=== PATIENT | male | born 1980 | race African-American/Black ===

== ENCOUNTER → 2016-11-14 10:18 | Outpatient (CLI) | payer MEDICARE ==
[2015-09-03 09:41] VITALS: BMI 41.5
[~2016-11-14 10:18] MED LIST: BUMEX2 MG PO; CATAPRES0.1 MG PO; HYDRALAZINE HC100 MG PO; KEFLEX250 MG PO; LASIX80 MG PO; NIFEDIPINE ER90 MG PO; NORCO 7.5/325 T1 TA1 PO; NORMODYNE / TR200 MG PO; PROTONIX40 MG PO; TUMS500 MG PO; VITAMIN D31000 UNI2 PO
== END | disposition home or self-care (01) ==
LOC: D.ECHO 10:18
DX: R01.2 Other cardiac sounds (principal); A49.02 Methicillin resistant Staphylococcus aureus infection, unspecified site; R50.9 Fever, unspecified

== ENCOUNTER 2016-11-18 00:38 | Inpatient (IN) | payer MEDICARE ==
[2016-11-18] VITALS (7 sets, daily range): BP systolic 135–170; BP diastolic 73–92; Ht 172.7 cm; Wt 100.8 kg
[~2016-11-18] VITALS: Ht 172.7 cm; Wt 100.8 kg
--- NOTE | ~2016-11-18 | DS ---
PATIENT:LIDA GOLD :84 MEDICAL RECORD: [id number] DISCHARGE SUMMARY ADMISSION DATE: 11/18/16 DISCHARGE DATE: HISTORY OF PRESENT ILLNESS: Mr. Gold is a 36-year-old black male with chronic kidney disease, intermittent end-stage renal disease, poor compliance, who has developed outpatient fever with positive blood cultures with Staph and was admitted due to the development of pericarditis. HOSPITAL COURSE: The patient was begun on vancomycin and continued on vancomycin throughout his hospitalization. He had negative cultures, both blood and all fluid cultures, throughout his hospitalization. He was seen by cardiology where an echo and JOHANNA were negative for evidence of endocarditis. Outpatient cultures were positive for MRSA. He had a persistent pericardial friction rub with a large pericardial effusion, seen by Dr. Streeter and taken to surgery where he had pericardial window done. Cultures of pericardial fluid and his associated pleural fluid all were negative. His cytologies also were negative. He was restarted on dialysis since the pericardial effusion, was felt to be uremic in etiology and will remain on dialysis indefinitely. During this time, his blood pressure was controlled with reinstitution of his chronic medications of which he has had poor compliance. At the time of discharge, he had recovered well from his surgery. His pericardial rub had resolved. His cultures were negative. Vancomycin levels were stable, seen by Dr. Stauffer, who recommended that he finish his vancomycin out through December 15, which will give him a full 6-week course. He will resume outpatient dialysis and continue that and we will see him weekly. DISCHARGE DIAGNOSES: 1. Staphylococcal sepsis. 2. Purulent pericarditis, cultures now negative. 3. Uremia, restarting dialysis. 4. Hypertension. 5. Chronic anemia. 6. Poor compliance. PLAN: The patient will be discharged today after dialysis and restart his dialysis in [place] 3 times weekly. We will see him weekly on dialysis. He will continue his renal diet and his discharge meds will be Protonix 40 mg daily, labetalol 300 b.i.d., Nephro-Rand 1 daily, nifedipine 60 b.i.d., Renvela 800 mg t.i.d. We will finish out his dosing of vancomycin through December 15 with associated trough vancomycin levels. TRANSINT:[id number] Voice Confirmation ID: [id number] DOCUMENT ID: [id number] CC: [facility]. PELON CASTRO MD CC: [id number] DICTATION DATE: 12/06/16749 DEICER INSPECTOR PNEUMATIC: 12/06/16 08 ADM IN [place] [id number] [place] [id number]
--- NOTE | ~2016-11-18 | HEMODYNAMI ---
PATIENT:LIDA RICKS MEDICAL RECORD: [id number] : 84 LOCATION:[address] ADMISSION DATE: 11/18/16 Generatedon:11/23/201615:29 Patient name: LIDA RICKS Patient #: [id number] SSN: : 1980 Date of study: 11/23/2016 Page: Of Hemodynamic Procedure Report Patient Data Patient Demographics Procedure consent was obtained First Name: LIDA Gender: Male Last Name: MILLICENT : 1980 Patient #: [id number] Age: 36 year(s) Race: Black Additional ID: [id number] Contact details [address]: [address] [place] [address] State: [place] City: [place] Zip code: [address] Past Medical History Allergies: No known allergies Admission Admission Data Admission Date: 11/18/2016 Admission Time: 0:38 Room #: 2106 Procedure Procedure Types Cath Procedure Diagnostic Procedure JOHANNA Procedure Description Procedure Date Procedure Date: 11/23/2016 Procedure Start Time: 15:14 Procedure Staff Name Function Rufus Canela MD Performing Physician Lin Brunner RT Monitor Joel Vazquez RN Nurse Roxane Hastings RT Acute Care Nurse Hemodynamics Rest Pre Cath Intra NCS Post Cath Vital Signs Time Heart Resp SPO2 NIBP (mmHg) Rhythm Pain Sedation Rate (ipm) (%) Status Level (bpm) 15:10:37 100 99 150/88(108) NSR 0 (11) 10(A) , No pain 15:14:59 99 23 100 148/83(113) NSR 0 (11) 10(A) , No pain 15:19:11 100 19 97 142/85(108) NSR 0 (11) 10(A) , No pain 15:23:29 96 34 99 137/85(107) NSR 0 (11) 10(A) , No pain 15:28:28 98 11 Measuring NSR 0 (11) 10(A) , No pain Procedure Log Time Note 15:00:25 Joel Vazquez RN sent for patient. Start room use. 15:00:26 Time tracking: Regular hours 15:00:29 Plan of Care:Hemodynamics will remain stable., Cardiac rhythm will remain stable., Comfort level will be maintained., Respiratory function will remain adequate., Patient/ family verbilizes understanding of procedure., Procedure tolerated without complication., Recovers from procedure without complications.. 15:00:40 [facility] Floorperson present for JOHANNA. 15:07:04 Patient received from Pre/Post Procedure Room to CCL 2 Alert and oriented. Tansferred to table in Supine position. 15:07:05 Warm blankets applied, and yohana hugger turned on for patient comfort. 15:07:06 Correct patient and procedure confirmed by team. 15:07:07 Signed procedure consent form obtained from patient. 15:07:08 ECG and BP/O2 sat monitors applied to patient. 15:07:09 Full Disclosure recording started 15:07:31 H&P Date Dictated: 11/21/2016 Within 30 days and on chart.. 15:07:32 Pre-procedure instructions explained to patient. 15:07:33 Pre-op teaching completed and patient verbalized understanding. 15:07:34 Family in patients room. 15:07:55 Patient NPO since Midnight. 15:08:03 Patient allergic to No known allergies 15:08:06 Is the patient allergic to Iodine/contrast media? No. 15:08:08 Is patient on blood thinner?No 15:08:10 Patient diabetic? No. 15:08:15 ----Pre-sedation anethsthesia assessment.---- 15:08:29 See anesthesia notes for assessment. 15:08:36 Patient pain scale 0/10 ?. 15:08:59 IV patent on arrival in right antecubital with 0.9% NaCl at KVO. 15:09:06 Lab results completed and on chart. 15:09:09 Alarms reviewed by Trinity Gipson 15:09:24 Vital chart was started 15:09:28 Rhythm: sinus rhythm 15:11:23 Dr Almaraz present and monitoring patient for TIVA. 15:14:58 Procedure started. 15:16:13 JOHANNA started. 15:22:06 JOHANNA completed. 15:22:12 Procedure ended.(Physican Out) 15:25:48 End room use (Document Last) 15:29:07 Vital chart was stopped Signature Audit [place] Stage Time Signature Unsigned Intra-Procedure 11/23/2016 Roxane Hastings 3:29:05 PM RT(R) Signatures Monitor : Lin Signature : Counts RT Date : Time : [address] [address]
--- NOTE | 2016-11-18 00:48 | NUR ---
REC FROM [facility], STOUT VIA AMBULANCE/STRETCHER. ALERT/ORIENTED X 4. ON 02 AT 2L. RR 28. DEEP AND RAPID. IV IN RT AC SL. EMT STATED LEVAQUIN FINISHED EN ROUTE THAT WAS STARTED AT [facility]. DENIES PAIN. REQUESTED A SANDWICH/SODA. ORIENTED TO ROOM AND CALL LIGHT. FAMILY PRESENT IN ROOM. ORDERS FAXED FROM [facility]SE [facility] NOTED.
[2016-11-18] MEDS ORDERED: NIFEDIPINE ER30 MG PO (02:56)
--- NOTE | 2016-11-18 04:00 | NUR ---
REQUESTED ANOTHER PILLOW. FLUSHED RT AC AND SL. DENIES PAIN OR ANY OTHER NEEDS.
[2016-11-18 06:03] LABS: BASOPHILS 0.1 % (0-2); EOSINOPHILS 0 % (0-7); HEMATOCRIT 23.3 % (42.0-54.0); HEMOGLOBIN 7.7 g/dL (13.5-17.5); IMMATURE GRANULOCYTES 0.4 % (0-5); LYMPHOCYTES 8.2 % (15-50); MCH 30.4 pg (26.0-34.0); MCV 92.1 fL (80.0-100.0); MEAN PLATELET VOLUME 9.5 fL (7.4-10.4); MONOCYTES 14.5 % (2-11); NEUTROPHILS 76.8 % (40-80); PLATELET COUNT 312 10x3/uL (130-400); RBC 2.53 10x6/uL (4.20-6.10); RDW 13.6 % (11.5-14.5); WBC 13.5 10x3/uL (4.8-10.8)
--- NOTE | 2016-11-18 06:20 | NUR ---
ADMIN TYLENOL 650MG PO FOR ELEVATED TEMP 100.1 DEGREES F.
[2016-11-18 06:22] LABS: CALCIUM 8.9 mg/dL (8.5-10.1); CARBON DIOXIDE 26.6 mmol/L (21.0-32.0); CREATININE - SERUM 5.7 mg/dL (0.6-1.3); PHOSPHOROUS 3.5 mg/dL (2.5-4.9); POTASSIUM - SERUM 3.6 mmol/L (3.5-5.1)
--- NOTE | 2016-11-18 07:40 | NUR ---
PT IN BED WITH FAMILY MEMBER (ALSO IN BED) AND ANOTHER FAMILY MEMBER SITTING AT DENIES NEEDS AT THIS TIME WILL CONTINUE TO MONITOR
--- NOTE | 2016-11-18 10:50 | NUR ---
PT SITTING UP IN BED DENIES NEEDS
--- NOTE | 2016-11-18 19:15 | NUR ---
RECEIVED REPORT, WILL ASSUME CARE OF PT, PT SITTING UP IN CHAIR, VISITING WITH FAMILY, DENIES ANY NEEDS AT THIS TIME, WILL CONTINUE PLAN OF CARE
--- NOTE | 2016-11-18 21:35 | NUR ---
FEVER-102.8, GAVE 2 TYLENOL PER ORDER
--- NOTE | 2016-11-18 23:53 | NUR ---
ASSESSMENT COMPLETE, SEE FLOWSHEET, PT SLEEPING, BED IS LOW, SRX2, CALL LIGHT IN REACH, WILL CONTINUE TO MONITOR
[2016-11-19] VITALS: BP 123/64
[2016-11-19 04:00] VITALS: BP 141/76
[2016-11-19 06:09] LABS: BASOPHILS 0.1 % (0-2); EOSINOPHILS 0.4 % (0-7); HEMATOCRIT 22.3 % (42.0-54.0); IMMATURE GRANULOCYTES 0.4 % (0-5); LYMPHOCYTES 12.1 % (15-50); MCH 29.4 pg (26.0-34.0); MCHC 32.3 g/dL (31.0-37.0); MEAN PLATELET VOLUME 9.3 fL (7.4-10.4); MONOCYTES 13.1 % (2-11); NEUTROPHILS 73.9 % (40-80); PLATELET COUNT 286 10x3/uL (130-400); RBC 2.45 10x6/uL (4.20-6.10); RDW 13.7 % (11.5-14.5); WBC 11.7 10x3/uL (4.8-10.8)
[2016-11-19 06:22] LABS: HEMOGLOBIN 7.2 g/dL (13.5-17.5)
[2016-11-19 06:48] LABS: ANION GAP 12.6 mmol/L (8-16); CALCIUM 9.1 mg/dL (8.5-10.1); CARBON DIOXIDE 27.9 mmol/L (21.0-32.0); CREATININE - SERUM 7.6 mg/dL (0.6-1.3); POTASSIUM - SERUM 3.5 mmol/L (3.5-5.1); VANCOMYCIN - RANDOM 8.8 ug/mL (10.0-20.0)
[2016-11-19 08:10] VITALS: BP 138/80
--- NOTE | 2016-11-19 09:32 | NUR ---
PT SITTING IN CHAIR CONVERSING WITH VISITORS PROVIDED LEMON-BIG [employer]INE RESERVATION SODA PER REQUEST DENIES NO FURTHER NEEDS AT THIS TIME WILL CONTINUE TO MONITOR
[2016-11-19 11:27] VITALS: BP 146/73
--- NOTE | 2016-11-19 13:41 | NUR ---
RESTS IN BED WITH CALL LIGHT IN REACH. IV PATENT. DR. MONTGOMERY AT BS. WILL CONT. PLAN OF CARE.
[2016-11-19 15:16] VITALS: BP 144/87
--- NOTE | 2016-11-19 17:37 | NUR ---
PATIENT LEFT UNIT FOR DIALYSIS AT 1515. NO DISTRESS UPON LEAVING UNIT.
--- NOTE | 2016-11-19 19:25 | NUR ---
NOT IN ROOM. STILL IN DIALYSIS.
[2016-11-19 20:00] VITALS: BP 152/89
--- NOTE | 2016-11-19 22:02 | NUR ---
BACK FROM DIALYSIS. ADMIN SCHED MEDS AND TYLELENOL 650 MG FOR ELEVATED TEMP OF 101.4 F. REQUESTED DOOR CLOSED AND LIGHTS OFF. NO OTHER NEEDS VOICED.
[2016-11-20] VITALS: BP 138/78
--- NOTE | 2016-11-20 03:42 | NUR ---
IV WOULD NOT FLUSH. REMOVED, AND RESITED IN RIGHT HAND 22G. REQUESTED SOME APPLEJUICE.
[2016-11-20 04:00] VITALS: BP 142/78
[2016-11-20 06:42] LABS: BASOPHILS 0.2 % (0-2); EOSINOPHILS 0.7 % (0-7); HEMATOCRIT 25.2 % (42.0-54.0); HEMOGLOBIN 8.3 g/dL (13.5-17.5); IMMATURE GRANULOCYTES 0.5 % (0-5); LYMPHOCYTES 11.7 % (15-50); MCH 29.3 pg (26.0-34.0); MCHC 32.9 g/dL (31.0-37.0); MEAN PLATELET VOLUME 9.4 fL (7.4-10.4); MONOCYTES 11.8 % (2-11); NEUTROPHILS 75.1 % (40-80); PLATELET COUNT 275 10x3/uL (130-400); RBC 2.83 10x6/uL (4.20-6.10); RDW 14.7 % (11.5-14.5)
[2016-11-20 06:58] LABS: CARBON DIOXIDE 30.4 mmol/L (21.0-32.0); CREATININE - SERUM 5.8 mg/dL (0.6-1.3); POTASSIUM - SERUM 3.4 mmol/L (3.5-5.1); VANCOMYCIN - RANDOM 14.2 ug/mL (10.0-20.0)
--- NOTE | 2016-11-20 07:23 | NUR ---
PT SITTING UP IN CHAIR WITH ATTENTION TOWARDS TELEVISION DENIES NEEDS AT THIS TIME WILL CONTINUE TO MONITOR
[2016-11-20 07:47] VITALS: BP 143/77
--- NOTE | 2016-11-20 09:53 | NUR ---
RESTS IN BED WITH CALL LIGHT IN REACH. IV PATENT. NO NEEDS VOICED. WILL CONT. PLAN OF CARE.
[2016-11-20 11:41] VITALS: BP 131/77
[2016-11-20 16:12] VITALS: BP 142/82
[2016-11-20 19:00] VITALS: BP 119/76
--- NOTE | 2016-11-20 19:15 | NUR ---
RECEIVED REPORT, WILL ASSUME CARE OF PT, RECEIVING BREATHING TREATMENT AT THIS TIME, DENIES ANY NEEDS, BED IS LOW, SRX2, CALL LIGHT IN REACH, WILL CONTINUE PLAN OF CARE
--- NOTE | 2016-11-20 23:51 | NUR ---
[id number] LAWRENCE IV IN RFA, I-ATTEMPT
--- NOTE | 2016-11-21 01:05 | NUR ---
CALL LIGHT IN REACH, WILL CONTINUE WITH PLAN OF CARE.
[2016-11-21 04:00] VITALS: BP 151/84
--- NOTE | 2016-11-21 04:09 | NUR ---
ASSESSMENT COMPLETE, SEE FLOWSHEET, PT SLEEPING, BED IS LOW, SRX2, CALL LIGHT IN REACH , WILL CONTINUE TO MONITOR
[2016-11-21 05:35] LABS: BASOPHILS 0.2 % (0-2); EOSINOPHILS 0.6 % (0-7); HEMATOCRIT 25.6 % (42.0-54.0); HEMOGLOBIN 8.4 g/dL (13.5-17.5); IMMATURE GRANULOCYTES 0.4 % (0-5); LYMPHOCYTES 10.3 % (15-50); MCH 29.3 pg (26.0-34.0); MCHC 32.8 g/dL (31.0-37.0); MCV 89.2 fL (80.0-100.0); MEAN PLATELET VOLUME 9.6 fL (7.4-10.4); MONOCYTES 11.4 % (2-11); NEUTROPHILS 77.1 % (40-80); PLATELET COUNT 290 10x3/uL (130-400); RBC 2.87 10x6/uL (4.20-6.10); RDW 14.6 % (11.5-14.5); WBC 12.9 10x3/uL (4.8-10.8)
[2016-11-21 06:09] LABS: ANION GAP 11.9 mmol/L (8-16); CALCIUM 8.9 mg/dL (8.5-10.1); CARBON DIOXIDE 29.4 mmol/L (21.0-32.0); CREATININE - SERUM 6.9 mg/dL (0.6-1.3); POTASSIUM - SERUM 3.3 mmol/L (3.5-5.1); THYROID STIMULATING HORMONE 0.72 uIU/mL (0.36-3.74); VANCOMYCIN - RANDOM 16.6 ug/mL (10.0-20.0)
[2016-11-21 06:46] LABS: ERYTHROCYTE SEDIMENTATION RATE 112 mm/hr (0-15)
--- NOTE | 2016-11-21 07:40 | NUR ---
LYING IN BED RESTING. DENIES ANY NEEDS. ALERT AND ORIENTED X4. CALL LIGHT IN REACH. WILL CONTINUE TO MONITOR.
[2016-11-21 08:00] VITALS: BP 133/88
--- NOTE | 2016-11-21 10:32 | NUR ---
RESP UL ON . CALL LIGHT IN REACH. ROBYN NEEDS AT THIS TIME. WILL CINT. PLAN OF CARE.
--- NOTE | 2016-11-21 10:48 | NUR ---
INFORMED PT OF CHANGE IN DIALYSIS TO M,W,FRI. AND THAT HE WILL BE GOING TO CT IN THE NEXT 30 MIN PER MARGARITA IN IMAGING. PT VERBALIZED UNDERSTANDING. NO CONCERNS VOICED. CALL LIGHT IN REACH
--- NOTE | 2016-11-21 11:30 | NUR ---
TRANSFERED OFF FLOOR BY IMAGING FOR CT
[2016-11-21 12:00] VITALS: BP 144/83
--- NOTE | 2016-11-21 12:00 | NUR ---
MARGARITA FROM IMAGING CALLED AND ADVISED SHE WAS TAKING PT TO DIALYSIS
[2016-11-21 16:00] VITALS: BP 152/96
[2016-11-21 20:00] VITALS: BP 144/85
[2016-11-22] VITALS (7 sets, daily range): BP systolic 137–163; BP diastolic 76–91
--- NOTE | 2016-11-22 02:00 | NUR ---
NURSE ROUNDS 11/21/16 21:00 - PT LYING IN BED, AWAKE, ALERT, ORIENTED, JUST INFORMED BY COTTON BALL BAGGER THAT HIS TEMP WAS 102.8. BLOOD CULTURES ORDERED X [address] ANTONY'S ORDER, PRN TYLENOL GIVEN, PT IN NO ACUTE DISTRESS. PT GIVEN DIET LEMON [place] SODA, AKSHAT CRACKERS, AND APPLESAUCE TO TAKE WITH HIS VIBRAMYCIN TO OFFSET POSSIBLE NAUSEA. PT DENIES ANY OTHER NEEDS. CONTINUE TO MONITOR CLOSELY.
[2016-11-22 05:32] LABS: BASOPHILS 0.1 % (0-2); EOSINOPHILS 0.8 % (0-7); HEMATOCRIT 26.6 % (42.0-54.0); HEMOGLOBIN 8.4 g/dL (13.5-17.5); IMMATURE GRANULOCYTES 0.5 % (0-5); LYMPHOCYTES 11.2 % (15-50); MCH 28.7 pg (26.0-34.0); MCHC 31.6 g/dL (31.0-37.0); MCV 90.8 fL (80.0-100.0); MEAN PLATELET VOLUME 9.2 fL (7.4-10.4); MONOCYTES 14.1 % (2-11); NEUTROPHILS 73.3 % (40-80); PLATELET COUNT 315 10x3/uL (130-400); RBC 2.93 10x6/uL (4.20-6.10); RDW 14.2 % (11.5-14.5); WBC 12.1 10x3/uL (4.8-10.8)
[2016-11-22 05:59] LABS: ALBUMIN 2.3 g/dL (3.4-5.0); ANION GAP 11.7 mmol/L (8-16); CARBON DIOXIDE 29.9 mmol/L (21.0-32.0); CREATININE - SERUM 5.3 mg/dL (0.6-1.3); POTASSIUM - SERUM 3.6 mmol/L (3.5-5.1); PROTEIN - SERUM 7.7 g/dL (6.4-8.2); VANCOMYCIN - RANDOM 9.4 ug/mL (10.0-20.0)
--- NOTE | 2016-11-22 07:30 | NUR ---
RESTING QUIETLY RESP UNLABORED NAD NOTED
--- NOTE | 2016-11-22 07:55 | NUR ---
SITTING UP IN BED WATCHING TV. OFFERS NO COMPLAINTS. ALERT AND ORIENTED X4. CALL LIGHT IN REACH, BED LOW. WILL CONTINUE TO MONITOR.
[2016-11-22 08:19] LABS: HEPATITIS C ANTIBODY 0.2 (0.0-0.9)
--- NOTE | 2016-11-22 08:26 | NUR ---
ADMINISTERED IV VANC 250ML/HR WITH NO DIFFICULTIES WITH IV TO RIGHT AC. WILL CONTINUE TO MONITOR.
[2016-11-22 10:18] LABS: ANA REFLEX - DIRECT Negative (Negative)
--- NOTE | 2016-11-22 20:57 | NUR ---
PT LYING IN BED, AWAKE, ALERT, ORIENTED, DENIES ANY NEEDS. WILL CALL IF ANY CHANGES. CONTINUE TO MONITOR CLOSELY.
[2016-11-23] VITALS: BP 146/79
--- NOTE | 2016-11-23 00:11 | NUR ---
PT LYING IN BED, EYES CLOSED, EASILY ROUSABLE TO VERBAL STIMULI. PT DENIES ANY NEEDS, REFUSES TO EAT ANYTHING BEFORE GOING NPO AFTER MIDNIGHT. CONTINUE TO MONITOR CLOSELY.
[2016-11-23 04:00] VITALS: BP 149/89
[2016-11-23 05:36] LABS: BASOPHILS 0.1 % (0-2); EOSINOPHILS 1.3 % (0-7); HEMATOCRIT 24.7 % (42.0-54.0); HEMOGLOBIN 7.8 g/dL (13.5-17.5); IMMATURE GRANULOCYTES 0.4 % (0-5); LYMPHOCYTES 13.7 % (15-50); MCH 28.7 pg (26.0-34.0); MCHC 31.6 g/dL (31.0-37.0); MCV 90.8 fL (80.0-100.0); MONOCYTES 13.3 % (2-11); NEUTROPHILS 71.2 % (40-80); PLATELET COUNT 317 10x3/uL (130-400); RBC 2.72 10x6/uL (4.20-6.10)
[2016-11-23 05:59] LABS: CALCIUM 8.9 mg/dL (8.5-10.1); CARBON DIOXIDE 28.5 mmol/L (21.0-32.0); CREATININE - SERUM 6.3 mg/dL (0.6-1.3); PHOSPHOROUS 4.2 mg/dL (2.5-4.9); POTASSIUM - SERUM 3.5 mmol/L (3.5-5.1); VANCOMYCIN - RANDOM 14.8 ug/mL (10.0-20.0)
--- NOTE | 2016-11-23 07:18 | NUR ---
PT SITTING UP IN BED DENIES NEEDS AT THIS TIME. ASKING WHAT TIME HIS JOHANNA WILL BE. CALLED ULTRASOUND, NO ONE HERE YET. WILL KEEP TRYING.
[2016-11-23 08:24] VITALS: BP 146/66
--- NOTE | 2016-11-23 10:03 | NUR ---
PT TO RECEIVE 1 UNIT OF BLOOD ON DIALYSIS TODAY. CONSENT IS ON CHART. PT TO HAVE JOHANNA DONE ALSO TODAY. CONSENTS ARE ALSO SIGNED AND ON PT CHART. SCHEDULED FOR 1 PM
[2016-11-23 12:12] VITALS: BP 142/75
--- NOTE | 2016-11-23 14:25 | NUR ---
SPOKE WITH MANAGER REGIONAL SALES ABOUT PT JOHANNA THAT WAS SCHEDULED AT 1300 STILL HASNT BEEN DONE YET. SHE SAID THEY WERE WAITING ON SODA FOUNTAIN CLERK- SHOULD DO AT 1500
--- NOTE | 2016-11-23 15:02 | NUR ---
PT TO JOHANNA PROCEDURE
--- NOTE | 2016-11-23 15:45 | NUR ---
PT BACK FROM PROCEDURE ALERT AND ORIENTED LETHARGIC BUT ARROUSES TO VOICE. VS ARE WNL. WILL CONT TO MONITOR. CALLED DIALYSIS TO LET THEM KNOW PT WAS BACK NO ANSWER. DIALYSIS EQUIPMENT ON FLOOR AND LANCE NURSE SAID SHE WOULD BE UP SOON
[2016-11-23 16:27] VITALS: BP 130/67
--- NOTE | 2016-11-23 17:50 | NUR ---
[facility] ORDER WAS PUT IN WRONG AND BLOOD BANK DID NOT RECEIVE ORDER TO TRANSFUSE BLOOD. FIXED ORDER. CALLED BLOOD BANK AND THEY SAID THAT THEY CAN HAVE IT READY IN 1 HOUR. DIALYSIS CURRENTLY GOING. TALKED WITH LANCE AND [facility] THEY SAID IF BLOOD IS HERE WITHIN THE HOUR THEN THEY CAN GIVE IT WITH DIALYSIS.
--- NOTE | 2016-11-23 18:03 | NUR ---
PT CURRENTLY RECEIVING DIALYSIS. LANCE AT BEDSIDE. WAITING ON BLOOD TO BE READY FROM BLOOD BANK
--- NOTE | 2016-11-23 18:15 | NUR ---
DIALYSIS NURSE LANCE CAME OUT AND SAID THAT PT BP IS GETTING HIGH 170S/118. PAGED RENAL ASPARAGUS CUTTER FOR PRN MEDICATION. PT HAS NONE.
[2016-11-23 19:00] VITALS: BP 176/106
--- NOTE | 2016-11-23 19:41 | NUR ---
PT LYING IN BED, RESTING COMFORTABLY, RECEIVING DIALYSIS AT THIS TIME. REPORT FROM DAY SHIFT NURSE CORDELL WAS THAT THE BLOOD WAS NOT ORDERED CORRECTLY, THEREFORE IT WAS NOT AVAILABLE TO TRANSFUSE DURING DIALYSIS AT THIS TIME. ALSO, PT EXPERIENCED A HYPERTENSIVE EPISODE THAT REQUIRED HIS B/P MEDS TO BE GIVEN EARLIER THAN SCHEDULED. DIALYSIS NURSE JUST INFORMED THAT HE HAS 51 MINUTES LEFT ON DIALYSIS, AND THAT SHE IS UNABLE TO GIVE THE BLOOD NOW ANYWAY. WILL CONSULT WITH RENAL FOR ANY FURTHER ORDERS. CONTINUE TO MONITOR CLOSELY.
[2016-11-24] VITALS: BP 187/96
--- NOTE | 2016-11-24 05:19 | NUR ---
PT LYING IN BED, EYES CLOSED, RESPIRATIONS EVEN AND UNLABORED. PT DENIES ANY NEEDS, CONTINUE TO MONITOR CLOSELY.
[2016-11-24 05:24] LABS: BASOPHILS 0.2 % (0-2); EOSINOPHILS 0.9 % (0-7); HEMATOCRIT 24.9 % (42.0-54.0); IMMATURE GRANULOCYTES 0.4 % (0-5); LYMPHOCYTES 13.6 % (15-50); MCH 29.2 pg (26.0-34.0); MCHC 32.1 g/dL (31.0-37.0); MCV 90.9 fL (80.0-100.0); MEAN PLATELET VOLUME 9.1 fL (7.4-10.4); MONOCYTES 12.7 % (2-11); NEUTROPHILS 72.2 % (40-80); PLATELET COUNT 324 10x3/uL (130-400); RBC 2.74 10x6/uL (4.20-6.10); RDW 13.9 % (11.5-14.5); WBC 10.3 10x3/uL (4.8-10.8)
[2016-11-24 05:43] LABS: ANION GAP 11.8 mmol/L (8-16); CALCIUM 8.9 mg/dL (8.5-10.1); CARBON DIOXIDE 29.6 mmol/L (21.0-32.0); CREATININE - SERUM 4.5 mg/dL (0.6-1.3); PHOSPHOROUS 3.4 mg/dL (2.5-4.9); POTASSIUM - SERUM 3.4 mmol/L (3.5-5.1); VANCOMYCIN - RANDOM 16.5 ug/mL (10.0-20.0)
--- NOTE | 2016-11-24 07:20 | NUR ---
PT LAYING TO LEFT SIDE COMPLETING BREATHING TX DENIES ANY NEEDS WILL CONT TO MONITOR
[2016-11-24 08:20] LABS: CREATININE - URINE 225.5 mg/dL (30-125)
[2016-11-24 09:18] VITALS: BP 136/79
[2016-11-24 12:35] VITALS: BP 144/77
--- NOTE | 2016-11-24 14:06 | TEE ---
PATIENT:LIDA RICKS MEDICAL RECORD: [id number] LOCATION:D.M2 D.210 AGE OF PATIENT: 36 ADMISSION DATE: 11/18/16 SEX: M REFERRING PHYSICIAN: INTERPRETING PHYSICIAN: DEDRICK EPSTEIN MD TRANSESOPHAGEAL ECHOCARDIOGRAM JOHANNA CHARGE Y INDICATIONS: EVALUATE PERICARDIAL EFFUSION & R/O VEGETATION ON MITRAL VALVE PREMEDICATIONS: PATIENT'S RESPONSE PROCEDURE DOPPLER MEASUREMENTS: LVIT LA PA RA LVOT RVOT Asc. Ao AV Gradient Peak AV Mean AV Area MV Gradient Peak MV Mean MV Area INTERPRETATION: Doppler: 2-D: COLOR FLOW DOPPLER NORMAL SALINE STUDY: MISCELLANOUS: DIAGNOSIS: PLAN: Physician Assistant:3 Dr. Canela Resort Desk Clerk: 1 TRINA HOROWITZ COMMENTS: SMALL VEG NOTED ON MV POSTERIOR LEAFLET DATE OF SERVICE: 11/23/2016 Transesophageal Note DESCRIPTION OF PROCEDURE: After general sedation via TIVA via anesthesia, the transesophageal Omniplane probe was placed in the distal esophagus and proximal stomach without difficulty. TRANSESOPHAGEAL ECHOCARDIOGRAM REPORT [id number] LIDA RICKS FINDINGS: As follows, LVH is present. LV internal dimensions are normal. Wall motion is normal. EF is greater than 55%. The aortic valve is well visualized, it is tricuspid with no evidence of vegetation. No significant AI is noted. Left atrium appears of normal dimensions. Left atrial appendage is well visualized with no evidence of thrombus. Mitral valve is well visualized, this showed normal coaptation with no vegetation noted. Right-sided chambers appear upper limits of normal. Tricuspid valve is well visualized. There is trivial TR with no evidence of vegetation. Pulmonic valve shows no evidence of vegetation. IMPRESSION: No evidence of vegetation in all 4 cardiac valves, normal left ventricular function. TRANSINT:[id number] Voice Confirmation ID: [id number] DOCUMENT ID: [id number] at 1406 CC: [id number] DICTATION DATE: 11/23/16 1526 SUPERINTENDENT STORAGE AREA: 11/24/16 0037 ADM IN [place] [id number] [place] [address]
--- NOTE | 2016-11-24 15:16 | NUR ---
Nutrition Follow Up: Pt is eating 95% meal avg on a renal diet. Wt loss since admit noted. +BM 11/19/16. Meds and labs reviewed. Rec continue current diet. RD following.
[2016-11-24 16:27] VITALS: BP 146/69
--- NOTE | 2016-11-24 19:30 | NUR ---
RECEIVED REPORT, WILL ASSUME CARE OF PT, PT DENIES ANY NEEDS AT THIS TIME, VISITING WITH FAMILY, BED IS LOW, SRX2, CALL LIGHT IN REACH, WILL CONTINUE PLAN OF CARE
--- NOTE | 2016-11-24 19:55 | NUR ---
CREW LEADER AT BEDSIDE TO OBTAIN VITALS, CALL LIGHT IN REACH. WILL CONTINUE WITH PLAN OF CARE.
[2016-11-24 20:00] VITALS: BP 148/76
[2016-11-25] VITALS: BP 146/71
--- NOTE | 2016-11-25 01:47 | NUR ---
ASSESSMENT COMPLETE, SEE FLOWSHEET, PT SLEEPING, BED IS LOW, SRX2, CALL LIGHT IN REACH, WILL CONTINUE PLAN OF CARE
[2016-11-25 04:00] VITALS: BP 146/78
[2016-11-25 04:23] LABS: BASOPHILS 0.2 % (0-2); EOSINOPHILS 1.4 % (0-7); HEMATOCRIT 25.9 % (42.0-54.0); HEMOGLOBIN 8.4 g/dL (13.5-17.5); IMMATURE GRANULOCYTES 0.5 % (0-5); LYMPHOCYTES 15.1 % (15-50); MCH 29.2 pg (26.0-34.0); MCHC 32.4 g/dL (31.0-37.0); MCV 89.9 fL (80.0-100.0); MEAN PLATELET VOLUME 8.5 fL (7.4-10.4); NEUTROPHILS 72.8 % (40-80); PLATELET COUNT 338 10x3/uL (130-400); RBC 2.88 10x6/uL (4.20-6.10); RDW 13.7 % (11.5-14.5); WBC 10.2 10x3/uL (4.8-10.8)
[2016-11-25 04:51] LABS: ANION GAP 10.9 mmol/L (8-16); CALCIUM 9.2 mg/dL (8.5-10.1); CARBON DIOXIDE 28.6 mmol/L (21.0-32.0); CREATININE - SERUM 5.5 mg/dL (0.6-1.3); PHOSPHOROUS 3.7 mg/dL (2.5-4.9); POTASSIUM - SERUM 3.5 mmol/L (3.5-5.1); VANCOMYCIN - RANDOM 12.7 ug/mL (10.0-20.0)
--- NOTE | 2016-11-25 07:25 | NUR ---
PT SITTING UP IN BED WATCHING TV MOTHER IS AT BEDSIDE DENIES ANY NEEDS WILL CONT TO MONITOR
[2016-11-25 07:31] VITALS: BP 147/82
--- NOTE | 2016-11-25 08:40 | NUR ---
PT PIV INFILTRATED IN R AC DC WITH CATH TIP INTACT. RESITED TO R FA 22G X2 STICKS. NOW RUNNING WITHOUT ANY ISSUES. PT DENIES ANY OTHER NEEDS WILL CONT TO MONITOR
[2016-11-25 12:39] VITALS: BP 152/87
--- NOTE | 2016-11-25 14:04 | NUR ---
LANCE FROM DIALYSIS CALLED AND SAID THAT PT HAS BEEN CHANGED TO [facility]. THE ORDER STILL STATES THAT MWF DIALYSIS. ASKED HER WHO SAID THE ORDERS WERE CHANGED BECAUSE IT STILL STATES THAT PT IS TO HAVE MWF DIALYSIS. SHE SAID SHE WASNT SURE, THAT [facility] HAD SAID THEY CHANGED. SHE IS GOING TO ASK [facility] AND GET BACK TO ME
--- NOTE | 2016-11-25 14:36 | NUR ---
SPOKE WITH JOYCE RENAL PIANO AND ORGAN REFINISHER ABOUT PT DIALYSIS DAYS. SHE SAID THAT YES THEY ARE CHANGING HIM TO [facility] AND THE ORDER WILL BE FIXED
--- NOTE | 2016-11-25 14:49 | NUR ---
PT SITTING UP IN BED DENIES ANY NEEDS WILL CONT TO MONITOR. MOTHER AT BEDSIDE
[2016-11-25 15:46] VITALS: BP 141/81
[2016-11-25 15:47] LABS: APTT 33.3 SECONDS (22.8-39.4); INR 1.36 (0.85-1.17); PROTIME 16.7 SECONDS (11.6-15.0)
--- NOTE | 2016-11-25 18:02 | NUR ---
PT SITTING UP IN BED WATCHING TV DENIES NEEDS
--- NOTE | 2016-11-25 21:40 | NUR ---
AWAKE WATCHING TV. ADMIN SCHED MEDS. DENIES ANY NEEDS OR DISCOMFORTS.
[2016-11-25 23:43] LABS: APPEARANCE CLEAR (CLEAR); BACTERIA NONE SEEN /hpf (NONE SEEN); BILIRUBIN NEGATIVE (NEGATIVE); COLOR YELLOW (YELLOW); EPITHELIAL CELLS RARE /hpf (0-5); GLUCOSE NEGATIVE (NEGATIVE); KETONE NEGATIVE (NEGATIVE); LEUKOCYTE ESTERASE NEGATIVE (NEGATIVE); NITRITE NEGATIVE (NEGATIVE); PROTEIN 2+ mg/dL (NEGATIVE); RED CELLS - URINE 0-5 /hpf (0-5); UROBILINOGEN NORMAL (NORMAL); WHITE CELLS - URINE 0-5 /hpf (0-5)
--- NOTE | 2016-11-26 03:30 | NUR ---
MOTOCROSS RACER PRESENT IN ROOM TAKING VS. DENIES ANY NEEDS.
[2016-11-26 04:00] VITALS: BP 161/80
[2016-11-26 05:46] LABS: BASOPHILS 0.2 % (0-2); EOSINOPHILS 1.4 % (0-7); HEMATOCRIT 25.4 % (42.0-54.0); HEMOGLOBIN 8.2 g/dL (13.5-17.5); IMMATURE GRANULOCYTES 0.4 % (0-5); LYMPHOCYTES 11.4 % (15-50); MCHC 32.3 g/dL (31.0-37.0); MCV 89.8 fL (80.0-100.0); MEAN PLATELET VOLUME 8.9 fL (7.4-10.4); MONOCYTES 12.6 % (2-11); PLATELET COUNT 365 10x3/uL (130-400); RBC 2.83 10x6/uL (4.20-6.10); RDW 13.7 % (11.5-14.5); WBC 11.1 10x3/uL (4.8-10.8)
[2016-11-26 06:04] LABS: ANION GAP 14.7 mmol/L (8-16); CALCIUM 9.1 mg/dL (8.5-10.1); CARBON DIOXIDE 25.1 mmol/L (21.0-32.0); CREATININE - SERUM 5.8 mg/dL (0.6-1.3); PHOSPHOROUS 3.8 mg/dL (2.5-4.9); POTASSIUM - SERUM 3.8 mmol/L (3.5-5.1); VANCOMYCIN - RANDOM 16.1 ug/mL (10.0-20.0)
--- NOTE | 2016-11-26 07:47 | NUR ---
AM ROUNDS - PT IS IN BED AND APPEARS TO BE SLEEPING WITH EQUAL AND NON LABORED BREATHING. NON SKID SOCKS ON. IV TO RIGHT FA, SL. PT IS ON ROOM AIR. CONTACT ISOLATION. MONITOR SHOWING ST, HR 102. BED AT LOWEST POSITION. SIDE RAILS UP X2. CALL RICKS IN USE/REACH. WILL CONTINUE TO MONITOR
[2016-11-26 08:00] VITALS: BP 172/83
--- NOTE | 2016-11-26 09:51 | NUR ---
MORNING MEDICATION GIVEN. NO NEEDS AT THIS TIME. WILL CONTINUE TO MONITOR
[2016-11-26 12:00] VITALS: BP 134/90
--- NOTE | 2016-11-26 12:31 | EC ---
PATIENT:LIDA RICKS DATE OF SERVICE: 11/18/16 SEX: M MEDICAL RECORD: [id number] DATE OF : [birth year] LOCATION:D.M2 D.210 AGE OF PATIENT: 36 ADMISSION DATE: 11/18/16 REFERRING PHYSICIAN: INTERPRETING PHYSICIAN: CONCHITA HERRON MD ECHOCARDIOGRAM REPORT ECHO CHARGES 5 ECHO LIMITED CLINICAL DIAGNOSIS: ASSESS FOR PERICARDIAL EFFUSION AND ENDOCARDITIS ECHOCARDIOGRAPHIC MEASUREMENTS (adult normal given) AC root (d.<3.7cm) cm LV Septum d (<1.2 cm> cm Valve Excursion cm LV Septum (systole) cm Left Atria (s.<4.0cm> cm LVPW d(<1.2cm) cm RV (d.<2.3cm) cm LVPW (sytole) cm LV diastole(<5.6CM) cm MV E-F(>70mm/sec) cm LV systole cm LVOT Diameter cm MV exc.(>10mm) cm Est.ejection fraction (50-75%) % Pericardial Effusion Y DOPPLER: LVIT cm/sec A cm/sec E cm/sec LA cm/sec RVSP mmHg LVOT cm/sec AOP1/2T m/s Asc. Ao cm/sec RVOT cm/sec RA cm/sec PA cm/sec AV Gradient Peak mmHg AV Mean mmHg AV Area cm MV Gradient Peak mmHg MV Mean mmHg MV Area cm COMMENTS: SMALL VEG NOTED ON MV POSTERIOR LEAFLET Digital Editor: Sidra MORGAN Yam Curer: Sha Herron TAPE# PACS DATE OF SERVICE: 11/19/2016 Echocardiogram FINDINGS: 1. Left ventricle chamber size is within normal limits. Left ventricular systolic function is normal. Overall ejection fraction 50%. 2. Pericardial effusion is present. This is small to moderate, not hemodynamically significant. 3. There is an echogenic structure on the posterior leaflet of mitral valve ECHOCARDIOGRAM REPORT [id number] [place]IDA RICKS this very well compatible with endocarditis. TRANSINT:[id number] Voice Confirmation ID: [id number] DOCUMENT ID: [id number] 11/25/2016 Edited to correct date of service, dmm. CONCHITA HERRON MD at 1231 CC: [id number] DICTATION DATE: 11/21/16 1023 HAND VIOLIN MAKER: 11/21/[address] [facility] [address] [place] [address]
--- NOTE | 2016-11-26 12:31 | EC ---
PATIENT:LIDA RICKS DATE OF SERVICE: 11/18/16 SEX: M MEDICAL RECORD: [id number] DATE OF : [birth year] LOCATION:D.M2 D.210 AGE OF PATIENT: 36 ADMISSION DATE: 11/18/16 REFERRING PHYSICIAN: INTERPRETING PHYSICIAN: CONCHITA BUTTERFIELD MD ECHOCARDIOGRAM REPORT ECHO CHARGES 5 ECHO LIMITED CLINICAL DIAGNOSIS: PERICARDIAL EFFUSION ECHOCARDIOGRAPHIC MEASUREMENTS (adult normal given) AC root (d.<3.7cm) 0 cm LV Septum d (<1.2 cm> 0 cm Valve Excursion 0 cm LV Septum (systole) 0 cm Left Atria (s.<4.0cm> 0 cm LVPW d(<1.2cm) 0 cm RV (d.<2.3cm) 0 cm LVPW (sytole) 0 cm LV diastole(<5.6CM) 0 cm MV E-F(>70mm/sec) 0 cm LV systole 0 cm LVOT Diameter 0 cm MV exc.(>10mm) 0 cm Est.ejection fraction (50-75%) 0 % Pericardial Effusion Y DOPPLER: LVIT 0 cm/sec A 0 cm/sec E 0 cm/sec LA 0 cm/sec RVSP 0 mmHg LVOT 0 cm/sec AOP1/2T 0 m/s Asc. Ao 0 cm/sec RVOT 0 cm/sec RA 0 cm/sec PA 0 cm/sec AV Gradient Peak 0 mmHg AV Mean 0 mmHg AV Area 0 cm MV Gradient Peak 0 mmHg MV Mean 0 mmHg MV Area 0 cm COMMENTS: LIMITED STUDY (2-D ONLY) Patternmaker All Around: Sha HOROWITZ Industrial Fabric Cutter: 2 Dr. Hunt TAPE# PACS DATE OF SERVICE: 11/25/2016 Limited Echocardiogram Evaluation and Pericardial Effusion Pericardial effusion is still present; however, it is smaller than it was previously. It is now mild at 1 cm-4 cm. No evidence of tamponade. OVERALL IMPRESSION: Decreasing size of the previously noted pericardial effusion with no evidence of hemodynamic compromise. ECHOCARDIOGRAM REPORT [id number] LIDA RICKS TRANSINT:[id number] Voice Confirmation ID: [id number] DOCUMENT ID: [id number] CONCHITA BUTTERFIELD MD at 1231 CC: LORENA VEGA MD [id number] DICTATION DATE: 11/25/16 1201 WASTE HAND: 11/25/162103 ADM IN [facility] [address] [place] [address]
--- NOTE | 2016-11-26 13:02 | NUR ---
EPOGEN WAS DUE AT 0900. NOT IN THE FRIDGE. CALLED PHARMACY. 1020 - PHARMACY BROUGHT EPOGEN UP. PT REVIEVING DIALYSIS. DIALYSIS SUGESTED THAT I WAIT UNTIL AFTER DIALYSIS. WILL CONTINUE TO MONITOR
--- NOTE | 2016-11-26 13:31 | NUR ---
ORDER FOR 2 UNITS [facility] ON DIALYSIS DAY WRITTEN ON 11/25/16. PT DID NOT RECIEVE DIALYSIS ON 11/25/16. PT RECIEVED DIALYSIS TODAY, 11/26/16, PT RECIEVED 2 UNITS [facility] WITH DIALYSIS. WILL CONTINUE TO MONITOR
[2016-11-26 16:00] VITALS: BP 133/76
--- NOTE | 2016-11-26 19:26 | NUR ---
PT ASLEEP. RESPIRATIONS EVEN AND UNLABORED. NO S/S OF DISTRESS. WILL CONTINUE TO MONITOR
[2016-11-26 20:00] VITALS: BP 155/87
--- NOTE | 2016-11-26 22:36 | NUR ---
PT SITTING IN BED WATCHING TV. DENIES ANY NEEDS OR COMPLAINTS, NO S/S OF DISTRESS. BED LOW CALLLIGHT WITHIN REACH, WILL CONTINUE TO MONITOR
[2016-11-27] VITALS: BP 143/75
--- NOTE | 2016-11-27 02:35 | NUR ---
PT C/O PAIN ON STERNUM. COUGH IS PRODUCTIVE. GIVEN PT A SPECIMEN CUP TO COLLET THE SP WANTED. TYLENOL GIVEN FOR PAIN. NO S/S OF DISTRESS PT DENIES ANY OTHER NEEDS. WILL CONTINUE TO MONITOR
[2016-11-27 04:00] VITALS: BP 153/85
--- NOTE | 2016-11-27 05:22 | NUR ---
O2 SAT 91% 2L OXYGEN NC. SAT INCREASED 96%. PT STATES HE WILL LEAVE IT ON FOR A WHILE I WILL CHECK IT AGAIN IN 30 MINS TO MONITOR. PT DENIES ANY OTHER NEEDS, NO S/S OF DISTRESS.
[2016-11-27 05:32] LABS: BASOPHILS 0.1 % (0-2); EOSINOPHILS 0.1 % (0-7); HEMATOCRIT 27.9 % (42.0-54.0); IMMATURE GRANULOCYTES 0.5 % (0-5); LYMPHOCYTES 6.2 % (15-50); MCH 28.6 pg (26.0-34.0); MCHC 32.3 g/dL (31.0-37.0); MCV 88.6 fL (80.0-100.0); MONOCYTES 11.2 % (2-11); NEUTROPHILS 81.9 % (40-80); PLATELET COUNT 396 10x3/uL (130-400); RBC 3.15 10x6/uL (4.20-6.10); RDW 14.3 % (11.5-14.5)
[2016-11-27 05:35] LABS: WBC 14.4 10x3/uL (4.8-10.8)
[2016-11-27 05:52] LABS: ANION GAP 11.4 mmol/L (8-16); CALCIUM 9.1 mg/dL (8.5-10.1); CREATININE - SERUM 5.3 mg/dL (0.6-1.3); POTASSIUM - SERUM 3.4 mmol/L (3.5-5.1); VANCOMYCIN - RANDOM 8.8 ug/mL (10.0-20.0)
--- NOTE | 2016-11-27 07:58 | NUR ---
AM ROUNDS - PT IN BED AND APPEARS TO BE SLEEPING WITH EQUAL AND NON LABORED BREATHING. OS AT 2L VIA NS. IV TO RIGHT FA, SL. MONITOR SHOEING ST, HR 111. RESERVE LEFT ARM. CONTACT ISOLATION. BED AT LOWEST POSITION. CALL RICKS IN USE/REACH. SIDE RAILS UP X2. WILL CONTINUE TO MONITOR
[2016-11-27 08:00] VITALS: BP 144/90
[2016-11-27 12:00] VITALS: BP 143/74
[2016-11-27 16:00] VITALS: BP 149/84
--- NOTE | 2016-11-27 19:52 | NUR ---
PT RESTING IN BED. HOB 45. ON PHONE, PT DENIES ANY NEEDS AT THIS TIME. PT VERBALIZED THAT HE WILL CALL IF HE HAS ANY NEEDS. NO S/S OF DISTRESS. WILL CONTINUE TO MONITOR
[2016-11-27 20:00] VITALS: BP 149/86
--- NOTE | 2016-11-27 21:03 | NUR ---
PT HAS FEVER 102.8 TYLENOL GIVEN AND A COOL RAG FOR FOREHEAD. WILL CONTINUE TO MONITOR TEMP. PT DENIES ANY NEEDS. NO S/S OF DISTRESS.
[2016-11-28] VITALS (26 sets, daily range): BP systolic 118–175; BP diastolic 75–108
[2016-11-28 05:22] LABS: HEMATOCRIT 27.7 % (42.0-54.0); MCH 28.8 pg (26.0-34.0); MCHC 32.5 g/dL (31.0-37.0); MCV 88.5 fL (80.0-100.0); MEAN PLATELET VOLUME 9.2 fL (7.4-10.4); PLATELET COUNT 396 10x3/uL (130-400); RBC 3.13 10x6/uL (4.20-6.10); WBC 22.2 10x3/uL (4.8-10.8)
[2016-11-28 05:45] LABS: ANION GAP 14.6 mmol/L (8-16); CALCIUM 9.2 mg/dL (8.5-10.1); CARBON DIOXIDE 26.9 mmol/L (21.0-32.0); CREATININE - SERUM 6.9 mg/dL (0.6-1.3); POTASSIUM - SERUM 3.5 mmol/L (3.5-5.1); VANCOMYCIN - RANDOM 23.3 ug/mL (10.0-20.0)
[2016-11-28 05:50] LABS: LYMPHOCYTES 7 % (15-50); MONOCYTES 10 % (2-11); NEUTROPHILS 83 % (40-80); PLATELET ESTIMATE NORMAL
--- NOTE | 2016-11-28 07:58 | NUR ---
0700- AM ROUNDING- RECEIVED REPORT FROM SITE IDENTIFICATION SPECIALIST NURSE VIVIAN. PT IS CURRENTLY SITTING UP IN BED WITH EYES OPEN RESTING. PT DENIES ANY PAIN OR DISCOMFORT AT CURRENT TIME. ON 02 AT 2L VIA NC. ON HEART MONITOR SHOWING ST, HR 108. IV SEEN TO RIGHT FOREARM THAT IS CURRENTLY SALINE LOCKED. RESERVE LEFT ARM FOR AVF ( + BRUIT - + THRILL). PT IS NPO CURRENTLY FOR PROCEDURE THIS AM. CONSENTS ARE SIGNED AND IN CHART. HT/WT ON CHART. MEDICATION LIST IN FRONT OF CHART. ELBOW PADS IN ROOM REQUESTED (PER VIVIAN RN). HIBICLENS SHOWER DONE. NO NEED AT CURRENT TIME. WILL CONTINUE TO MONITOR AND CONTINUE WITH PLAN OF CARE.
--- NOTE | 2016-11-28 08:04 | NUR ---
BETSY HOLBROOK INFORMED ME OF PTS MORNING VITAL SIGNS WHICH ARE FOLLOWS: BLOOD PRESSURE- 145/85 HEART RATE- 108 TEMP- 101.7 THIS NURSE INFORMED DANA WHITE CLINICAL ACCOUNT MANAGER. DANA SPOKE WITH DR. ANNE'S NURSE PHI. PHI STATES TO DANA WHITE, CLINICAL ACCOUNT MANAGER TO GIVE TYLENOL SUPPOSITORY. DANA WHITE, CLINICAL ACCOUNT MANAGER SPOKE WITH DR. SHRESTHA IN ANESTHESIA REGARDING WHICH AM MEDICATIONS TO GIVE PT, DR. SHRESTHA STATES TO HOLD ALL AM MEDICATIONS INCLUDING, PROCARDIA XL AND LABETALOL. WILL DO ORDERED.
--- NOTE | 2016-11-28 08:45 | NUR ---
TYLENOL SUPPOSITORY GIVEN ORDERED FOR FEVER. WILL RECHECK PTS TEMP AND CONTINUE TO MONITOR.
--- NOTE | 2016-11-28 08:54 | NUR ---
NURSING MESSAGE/ORDER PER DR. ANTONY TO DO BLOOD CULTURES IF PTS TEMP IS GREATER THAN >100. PTS TEMP THIS AM IS 101.7. SPOKE WITH CHARGE NURSE JIL FARIAS AND DINORA STATES TO PUT IN ORDER DIRECTED IN NURSING MESSAGE (WRITTEN ORDER). ORDER PLACED STATED.
--- NOTE | 2016-11-28 10:08 | NUR ---
RECHECKED PTS TEMP WHICH IS NOW 99.8 ORALLY.
--- NOTE | 2016-11-28 10:50 | NUR ---
PRE-OP MEDICATIONS GIVEN ORDERED (REGLAN AND PEPCID IV). BAG OF NS HUNG WITH TUBING PRIMED. WILL AWAIT OR TO GET PT AND CONTINUE TO MONITOR.
--- NOTE | 2016-11-28 12:16 | NUR ---
PT TO SURGERY VIA BED.
[2016-11-28 15:10] LABS: HEMATOCRIT 29.9 % (42.0-54.0); HEMOGLOBIN 9.7 g/dL (13.5-17.5); MCH 29.2 pg (26.0-34.0); MCHC 32.4 g/dL (31.0-37.0); MCV 90.1 fL (80.0-100.0); MEAN PLATELET VOLUME 9.2 fL (7.4-10.4); RBC 3.32 10x6/uL (4.20-6.10); WBC 19.9 10x3/uL (4.8-10.8)
[2016-11-28 15:23] LABS: ANION GAP 15.2 mmol/L (8-16); CALCIUM 8.9 mg/dL (8.5-10.1); CARBON DIOXIDE 27.1 mmol/L (21.0-32.0); CREATININE - SERUM 7.4 mg/dL (0.6-1.3)
[2016-11-28 15:25] LABS: POTASSIUM - SERUM 4.3 mmol/L (3.5-5.1)
--- NOTE | 2016-11-28 17:04 | NUR ---
1500PT RECIEVED IN THE ICU VIA BED FROM THE OR.. OR STAFF AND DR ANNE WITH PT.. PT IS ORALLY INTUBATE AND PLACED ON VENTILATOR ON ARRIVAL TO UNIT.. PT IS MOVING ALL EXTREMITIES BUT DOESS NOT FOLLOW COMMANDS OR RESPOND APPROOPRIATLY ... THERE IS A CVL RIGHT SUBCLAVIAN.. SEE FLOW SHEET FOR FLUID TYPES AND RATES.. THERE IS A MIDSTERNAL DRESSIN CDI WITH A CHEST TUBE MEDIALSTINAL TO 20CM H20 SUCTION BLOODY DRAINAGE IN THE TUBING AND CANNISTER.. PT IS WITH CRITICORE FOLEYCATH SCANT URINE IN TUBING.. SOFT WRIST RESTYRAINTS PLACED ON PT ON ARRICVAL TO PRENVENT SELF EXTUBATION.. [address] KAYLA HAWKINS PER DR ANNE 1530 ABGS DRAWN AND RESULTS TO DR GARZA AND DAYANA ORDERS FOR BICARB 2 AMPS NOW AND PROPAFOL DRIP RECIEVED.. 1545 DR ANNE SPEAKING WITH FAMILY AT THE BEDSIDE.. 1600 FAMILY IN TO SEE PT.. UPDATE GIVEN AND PASS WORD OBTAINED.. 1620 FAMILY GONE FROM ROOM.. BUPRENEX GIVEN FOR STATED C/O PAIN PROPAFOL IS TITRATED TO EFFECT.. 1645 JOYCE RENAL PARTS WASHER CALLED AND ORDER TO CHANGE LABETALOL FROM PO TO IV RECIEVED.. 1700 MT IS SOMEWHAT MORE SETTLED AT THIS TIMER..
--- NOTE | 2016-11-28 18:19 | NUR ---
174 DR KAYLA HESTER TO SEE PT.. VENT CHANGES MADE BY AT THIS TIME.. 1800 FAMILY IN TO SEE PT.. UPDATE IS GIVEN..
--- NOTE | 2016-11-28 19:30 | NUR ---
REC'D PT ON VENT VIA 7.0 ETT TAPED @ 25CM LIPLINE SEE FLOWSHEET FOR VENT SETTINGS, PT AROUSES TO DEEP STIMULI, RDLSCL DRSG CDI WITH NS @ 10CC/HR AND DIPRIVAN @ 75MCG/KG/MIN, LOWER CHEST DRSG CDI, LEFT CHEST DRSG CDI WITH CT TO 20CM H2O SUCTION, NO AIR LEAK NOTED, SEROSANGUINOUS DRAINAGE NOTED, CRITICORE RIVERA PATENT DRAINING YELLOW URINE WITH SEDIMENT, BILAT SCDS AND TEDS.
--- NOTE | 2016-11-28 20:30 | NUR ---
OGT PLACED BY STEPHANIE LEY, PLACEMENT VERIFIED VIA SM AIR BOLUS AUSCULTATED OVER EPIGASTRIM, OGT SECURED TO ETT AND PLACED TO LIWS.
--- NOTE | 2016-11-28 21:00 | NUR ---
PT'S MOTHER AT BS, UPDATE GIVEN AND QUESTIONS ANSWERED.
--- NOTE | 2016-11-28 23:00 | NUR ---
REASSESSMENT COMPLETED, TEMP UP TO 38.9 BY CRITICORE, 101.9 ORALLY, THERMOSTAT ADJUSTED AND TYLENOL 650MG GIVEN VIA OGT, PT RESP RATE INCREASED TO 32 WITH STIMULATION, DIPRIVAN REMAINS AT 75MCG/KG/MIN, VSS.
[2016-11-29] VITALS (24 sets, daily range): BP systolic 126–160; BP diastolic 74–120
--- NOTE | 2016-11-29 00:55 | NUR ---
PT REPOSITIONED FOR COMFORT AND ORAL CARE PROVIDED, FACIAL GRIMACING NOTED WITH POSITIONING, 0.2MG BUPRENEX GIVEN SLOW IVP FOR PAIN CONTROL, WILL MONITOR CLOSELY FOR CHNAGES.
--- NOTE | 2016-11-29 01:30 | NUR ---
FIO2 WEANED TO 60% PER RT, O2 SAT 96%, BP STABLE, WILL MONITOR FOR CHANGES.
--- NOTE | 2016-11-29 03:30 | NUR ---
REASSESSMENT COMPLETED, ATTEMPTING TO WEAN DIPRIVAN AT THIS TIME, VSS, WILL CONT TO MONITOR FOR CHANGES.
--- NOTE | 2016-11-29 05:30 | NUR ---
PT REPOSITIONED IN BED FOR COMFORT, RESP RATE INCREASED TO 35-40, 2MG VERSED GIVEN FOR AGITATION, BP ELEVATED, WILL MONITOR CLOSELY FOR CHANGES.
--- NOTE | 2016-11-29 05:45 | NUR ---
LAB DRAWN FROM CVL AND SENT TO LAB
[2016-11-29 05:56] LABS: BASOPHILS 0.1 % (0-2); EOSINOPHILS 0.3 % (0-7); HEMATOCRIT 25.7 % (42.0-54.0); HEMOGLOBIN 8.3 g/dL (13.5-17.5); IMMATURE GRANULOCYTES 0.4 % (0-5); LYMPHOCYTES 9.2 % (15-50); MCH 28.9 pg (26.0-34.0); MCHC 32.3 g/dL (31.0-37.0); MCV 89.5 fL (80.0-100.0); MEAN PLATELET VOLUME 8.8 fL (7.4-10.4); MONOCYTES 9.4 % (2-11); NEUTROPHILS 80.6 % (40-80); PLATELET COUNT 340 10x3/uL (130-400); RBC 2.87 10x6/uL (4.20-6.10); RDW 14.1 % (11.5-14.5); WBC 15.7 10x3/uL (4.8-10.8)
--- NOTE | 2016-11-29 06:00 | NUR ---
PT'S MOM AT , DR. CASTRO ON UNIT, UPDATE PROVIDED AND QUESTIONS ANSWERED
[2016-11-29 06:14] LABS: ANION GAP 15.6 mmol/L (8-16); CALCIUM 8.7 mg/dL (8.5-10.1); CARBON DIOXIDE 27.6 mmol/L (21.0-32.0); CREATININE - SERUM 8.2 mg/dL (0.6-1.3); PHOSPHOROUS 6.3 mg/dL (2.5-4.9); POTASSIUM - SERUM 4.2 mmol/L (3.5-5.1)
--- NOTE | 2016-11-29 10:07 | NUR ---
TEMP 101.3. BC DRAWN ORDERED TEMP >101. ICE PK X 2 AND TYLENOL GIVEN.
--- NOTE | 2016-11-29 11:32 | NUR ---
PT BATHED AND LINENS CHANGED, BP AND RESP ELEVATED, VERSED AND BUPERNEX GIVEN PRN. PT CALM AND VSS. VENT SETTINGS MADE BY DR GARZA ON ROUNDS. PT CHRISTOS WELL. SIMV RATE OF 16, FI02 40% AND PS 15. PT CHRISTOS WELL.
--- NOTE | 2016-11-29 15:17 | NUR ---
1515- HD BEGAN AND 1UPRBC'S STARTED.
--- NOTE | 2016-11-29 18:08 | NUR ---
HD COMPLETE, 4L OFF DURING HD.
[2016-11-29 18:09] LABS: ACID FAST SMEAR Negative (()); AFB SPECIMEN PROCESSING Tissue Grinding (())
[2016-11-29 18:09] LABS: ACID FAST SMEAR Negative (()); AFB SPECIMEN PROCESSING Concentration (())
[2016-11-29 18:09] LABS: ACID FAST SMEAR Negative (()); AFB SPECIMEN PROCESSING Concentration (())
--- NOTE | 2016-11-29 19:00 | NUR ---
REPORT RECIEVED. SHIFT ASSESSMENT COMPLETE PER FLOW SHEET. REFER FOR FINDINGS. VSS. ORAL ENDOTRACH CARE ADM. REPOSITIONED ON R SIDE. WILL CONTINUE TO MONITOR
--- NOTE | 2016-11-29 21:19 | NUR ---
FAMILY AT BEDSIDE. VSS NO NEW CHANGES. GIVEN UDPATE. NEEDS MET
--- NOTE | 2016-11-29 23:00 | NUR ---
REASSESSMENT COMPLETE PER FLOW SHEET. VSS. NO NEW CHANGES. WILL CONTINUE TO MONITOR
[2016-11-30] VITALS (24 sets, daily range): BP systolic 141–165; BP diastolic 81–98
--- NOTE | 2016-11-30 03:00 | NUR ---
REASSESSMENT COMPLETE PER FLOW SHEET. VSS. NO NEW CHANGES. WILL CONTINUE TO MONITOR
[2016-11-30 06:11] LABS: BASOPHILS 0.1 % (0-2); EOSINOPHILS 0.5 % (0-7); HEMATOCRIT 26.2 % (42.0-54.0); HEMOGLOBIN 8.5 g/dL (13.5-17.5); IMMATURE GRANULOCYTES 0.1 % (0-5); LYMPHOCYTES 5.1 % (15-50); MCHC 32.4 g/dL (31.0-37.0); MCV 89.4 fL (80.0-100.0); MEAN PLATELET VOLUME 9.2 fL (7.4-10.4); MONOCYTES 10.7 % (2-11); NEUTROPHILS 83.5 % (40-80); PLATELET COUNT 341 10x3/uL (130-400); RBC 2.93 10x6/uL (4.20-6.10); RDW 14.6 % (11.5-14.5); WBC 14.3 10x3/uL (4.8-10.8)
[2016-11-30 06:34] LABS: CALCIUM 8.7 mg/dL (8.5-10.1); CARBON DIOXIDE 31.1 mmol/L (21.0-32.0); CREATININE - SERUM 6.4 mg/dL (0.6-1.3); PHOSPHOROUS 6.5 mg/dL (2.5-4.9); POTASSIUM - SERUM 4.1 mmol/L (3.5-5.1); VANCOMYCIN - RANDOM 8.9 ug/mL (10.0-20.0)
--- NOTE | 2016-11-30 07:00 | NUR ---
REPORT RECIEVED FROM AUTOCLAVE OPERATOR NURSE. FULL ASSESSMENT COMPLETE PER FLOWSHEET. REFER FOR DETAILS. PLAN OF CARE ASSUMED. WILL MONITOR FOR CHANGES THROUGHOUT SHIFT.
--- NOTE | 2016-11-30 09:00 | NUR ---
MOTHER AT BEDSIDE FOR VISITATION.
--- NOTE | 2016-11-30 10:15 | NUR ---
PLACED ON SPONT ON VENT. WILL ASSESS ABG'S PER ORDERS ALONG WITH NIFF AND VITAL CAPACITY PER RT.
--- NOTE | 2016-11-30 10:30 | NUR ---
DR. GARZA AT BEDSIDE. PT'S MOTHER CAME IN ROOM TO SPEAK TO DR. GARZA. UPDATE PROVIDED.
--- NOTE | 2016-11-30 10:55 | NUR ---
Nutrition follow-up: Pt intubated, sedated post surgery Nepro started @ 20 ml/hr per Dr. Jensen via OGT labs reviewed Wt: 223# Recommend advancing TF to goal rate of 50 ml/hr. RDN following.
--- NOTE | 2016-11-30 11:45 | NUR ---
PT EXTUBATED PER RT. TOLERATED WELL. PLACED ON 4LNC. SPO2 98%.
[2016-11-30 13:17] LABS: FUNGUS STAIN Final report (())
[2016-11-30 13:17] LABS: FUNGUS STAIN Final report (())
[2016-11-30 13:17] LABS: FUNGUS STAIN Final report (())
--- NOTE | 2016-11-30 13:30 | NUR ---
WALKED WITH PT 50 FT. WEAKNESS NOTED BUT TOLERATED WELL. SAT IN RECLINER.
--- NOTE | 2016-11-30 15:00 | NUR ---
FAMILY AT BEDSIDE. PT DENIES NEEDS A THIS TIME. WILL CONT TO ASSESS.
--- NOTE | 2016-11-30 17:03 | NUR ---
DINNER TRAY PLACED ON BST. LEMON STEV[place] PROVIDED. VSS AT THIS TIME. NO ACUTE CHANGES NOTED. WILL CONT TO ASSESS.
--- NOTE | 2016-11-30 19:00 | NUR ---
REPORT RECIEVED. ASSESSMENT COMPELTE PER FLOW SHEET. VSS. DENIES PAIN OR NEEDS. WILL CONTINUE TO MONITOR
--- NOTE | 2016-11-30 21:00 | NUR ---
FAMILY AT BEDSIDE. GIVEN UPDATE. VSS. WILL CONTINUE TO MONITOR
--- NOTE | 2016-11-30 23:20 | NUR ---
REASSESSMENT COMPELT EPER FLOW SHEET. VSS. NO NEW CHANGES. DENIES PAIN OR NEEDS. WILL CONTINUE TO MONITOR
[2016-12-01] VITALS (24 sets, daily range): BP systolic 136–175; BP diastolic 79–104
--- NOTE | 2016-12-01 01:12 | NUR ---
PT RESTING COMFORTABLY. GIVEN SPRITE PER REQUEST. DENIES PAIN OR NEEDS.
--- NOTE | 2016-12-01 03:16 | NUR ---
REASSESSMENT COMPLETE PER FLOW SHEET. VSS. NO NEW CHANGES. WILL CONTINUE TO MONITOR
--- NOTE | 2016-12-01 04:00 | NUR ---
PT TO RAD FOR PA & LAT, PT TOLERATED WELL, COMPLETE LINEN CHANGE
[2016-12-01 04:09] LABS: BASOPHILS 0.2 % (0-2); EOSINOPHILS 1.2 % (0-7); HEMATOCRIT 29.6 % (42.0-54.0); HEMOGLOBIN 9.5 g/dL (13.5-17.5); IMMATURE GRANULOCYTES 0.3 % (0-5); LYMPHOCYTES 9.5 % (15-50); MCH 28.7 pg (26.0-34.0); MCHC 32.1 g/dL (31.0-37.0); MCV 89.4 fL (80.0-100.0); MEAN PLATELET VOLUME 9.2 fL (7.4-10.4); MONOCYTES 12.2 % (2-11); NEUTROPHILS 76.6 % (40-80); PLATELET COUNT 388 10x3/uL (130-400); RBC 3.31 10x6/uL (4.20-6.10); RDW 14.3 % (11.5-14.5); WBC 13.7 10x3/uL (4.8-10.8)
[2016-12-01 04:21] LABS: ANION GAP 12.6 mmol/L (8-16); CALCIUM 8.8 mg/dL (8.5-10.1); CARBON DIOXIDE 30.8 mmol/L (21.0-32.0); CREATININE - SERUM 6.5 mg/dL (0.6-1.3); PHOSPHOROUS 5.3 mg/dL (2.5-4.9)
[2016-12-01 04:27] LABS: POTASSIUM - SERUM 3.4 mmol/L (3.5-5.1)
--- NOTE | 2016-12-01 10:07 | NUR ---
PT OOB FOR BREAKFAST, DENIES NEEDS. ATE 100% OF BREAKFAST. PT AMB 200FT WITH PT.
--- NOTE | 2016-12-01 11:00 | NUR ---
* Is the patient Alert and Oriented? Yes 0 * How many steps to enter\exit or inside your home? 0 0 * PCP Dr. Stark 0 * Pharmacy [facility] in [place] 0 * Preadmission Environment Home with Family 0 * ADLs Independent 0 * List name and contact numbers for known caregivers / representatives who currently or will assist patient after discharge: Mother - Gabriele [phone] Aunt - Vianey [phone] Aunt - Rosalind [phone] 0 * Please name any agencies selected above. [facility] 0 * Additional services required to return to the preadmission environment? No 0 * Can the patient safely return to the preadmission environment? Yes 0 * Has this patient been hospitalized within the prior 30 days at any hospital? No Patient Name: LIDA RICKS Admission Status: Elective Accout number: [id number] Admission Date: 11-18-2016 : 1980 Admission Diagnosis:SHORTNESS OF BREATH Attending: MILTON Current LOS: 13 Planned Disposition: Home Primary Insurance: MEDICARE A & B Discharge Planning Comments: CM met with patient to assess dc plans/needs. Patient states he lives with his cousin & is independent with all ADL's & IADL's. He reports he does not use any assistive devices for mobility & does not have home health services. He drives himself to @ [facility] on . His chair time is 1045. At de, he will return home. He states his mom will assist with any needs. CM will follow & assist as needed. Strategy Execution Consultant: Jennifer Castillo
--- NOTE | 2016-12-01 15:47 | NUR ---
SITTING UP IN BED, DENIES NEEDS.
--- NOTE | 2016-12-01 19:00 | NUR ---
REPORT RECIEVED. ASSESSMENT COMPLETE PER FLOW SHEET. VSS. DENIES PAIN OR NEEDS. DIALYSIS NURSE AT BEDSIDE. WILL CONTINUE TO MONITOR
--- NOTE | 2016-12-01 20:07 | NUR ---
PRN APRESOLINE ADM FOR BP 175/108 WILL REASSESS. BUSINESS MANAGEMENT CONSULTANT AT BEDSIDE
--- NOTE | 2016-12-01 21:40 | NUR ---
NO FAMILY AT THIS TIME. VSS. NO NEW CHANGES. WILL CONTINUE TO MONITOR
--- NOTE | 2016-12-01 23:00 | NUR ---
REASSESSMENT COMPLETE PER FLOW SHEET. VSS. WILL CONTINUE TO MONITOR
[2016-12-02] VITALS (11 sets, daily range): BP systolic 127–159; BP diastolic 79–93
--- NOTE | 2016-12-02 01:22 | NUR ---
REPOSITIONED UP IN BED GIVEN CRANBERRY JUICE PER REQUEST. DENIES PAIN OR NEEDS. WILL CONTINUE TO MONITOR
--- NOTE | 2016-12-02 03:00 | NUR ---
REASSESSMENT COMPLETE PER FLOW SHEET. VSS. NO NEW CHANGES. WILL CONTINUE TO MONITOR
[2016-12-02 04:44] LABS: BASOPHILS 0.1 % (0-2); EOSINOPHILS 1.9 % (0-7); HEMATOCRIT 29.7 % (42.0-54.0); HEMOGLOBIN 9.5 g/dL (13.5-17.5); IMMATURE GRANULOCYTES 0.4 % (0-5); LYMPHOCYTES 9.8 % (15-50); MCH 28.4 pg (26.0-34.0); MCV 88.9 fL (80.0-100.0); MEAN PLATELET VOLUME 9.2 fL (7.4-10.4); MONOCYTES 13.9 % (2-11); NEUTROPHILS 73.9 % (40-80); PLATELET COUNT 378 10x3/uL (130-400); RBC 3.34 10x6/uL (4.20-6.10); WBC 11.6 10x3/uL (4.8-10.8)
--- NOTE | 2016-12-02 04:50 | NUR ---
RADIOLOGY AT BEDSIDE. PA/LAT WITHOUT DIFFICULTY. VSS. WILL CONTINUE TO MONITOR
[2016-12-02 04:58] LABS: ANION GAP 10.3 mmol/L (8-16); CALCIUM 8.8 mg/dL (8.5-10.1); CARBON DIOXIDE 33.1 mmol/L (21.0-32.0); POTASSIUM - SERUM 3.4 mmol/L (3.5-5.1); VANCOMYCIN - RANDOM 12.3 ug/mL (10.0-20.0)
[2016-12-02 05:06] LABS: PHOSPHOROUS 3.6 mg/dL (2.5-4.9)
[2016-12-02 05:07] LABS: CREATININE - SERUM 4.7 mg/dL (0.6-1.3)
--- NOTE | 2016-12-02 05:32 | NUR ---
ASSISTED TO BEDSDIE COMMODE. NO BM NOTED PASSING GAS. 250 CC ALISON URINE NOTED. GIVEN JUICE PER REQUEST. DENIES FURTHER NEEDS.
[2016-12-02 05:42] LABS: C-REACTIVE PROTEIN 30.5 mg/dL (0.0-0.9)
[2016-12-02 05:44] LABS: ERYTHROCYTE SEDIMENTATION RATE 110 mm/hr (0-15)
--- NOTE | 2016-12-02 07:15 | NUR ---
REPORT RECIEVED FROM GROWTH HACKER NURSE. PT RESTING IN BED QUIETLY. NO S/SX OF ACUTE DISTRESS NOTED AT THIS TIME. PT REQUESTED APPLE JUICE. APPLE JUICE TAKEN AND PLACED ON BST. FULL ASSESSMENT COMPLETE PER FLOWSHEET. REFER FOR DETAILS. CALL LIGHT IN REACH. BED IN LOW POSITION. WILL CONT TO ASSESS.
--- NOTE | 2016-12-02 08:00 | NUR ---
ASSISTED TO RECLINER. BREAKFAST PLACED ON BEDSIDE TABLE ALONG WITH CALL LIGHT. PT DENIED FURTHER NEEDS. WILL CONT TO ASSESS.
--- NOTE | 2016-12-02 09:00 | NUR ---
NO VISITORS AT THIS TIME.
--- NOTE | 2016-12-02 09:53 | NUR ---
NUTRITION MONITORING & EVAL CHART REVIEWED, NURSING REPORTS PT WITH GOOD INTAKE RENAL DIET. WILL CONTINUE TO PROVIDE DIET, MONITOR PO INTAKE. RD FOLLOWING
--- NOTE | 2016-12-02 11:00 | NUR ---
DENIES NEEDS AT THIS TIME. WILL CONT TO ASSESS.
--- NOTE | 2016-12-02 14:00 | NUR ---
RESTING IN RECLINER WITH EYES CLOSED. RESP EVEN AND UNLABORED. NO S/SX OF ACUTE DISTRESS NOTED AT THIS TIME. CALL LIGHT IN REACH. WILL CONT TO ASSESS.
--- NOTE | 2016-12-02 15:00 | NUR ---
FAMILY AT BEDSIDE FOR VISITATION.
--- NOTE | 2016-12-02 17:42 | NUR ---
REPORT CALLED TO JIL JUAN ON MED 2. CRESENCIO MARCANO VIA W/C.
--- NOTE | 2016-12-02 18:46 | NUR ---
PT ARRIVED FROM ICU TRANSFER. FAMILY AT BEDSIDE. PT A&O AND FAMILIAR WITH FLOOR WILL CTM.
--- NOTE | 2016-12-02 19:16 | NUR ---
RECEIVED REPORT, ASSUMED CARE OF PATIENT. DENIES ANY NEEDS OR DISCOMFORTS. ORIENTED TO CALL LIGHT FOR ANY NEEDS.
--- NOTE | 2016-12-02 21:25 | NUR ---
SITTING IN CHAIR. ADMIN SCHED MEDS. REQUESTED APPLEJUICE. VISITOR PRESENT IN ROOM.
--- NOTE | 2016-12-03 00:45 | NUR ---
REC RESP UPDRAFT TX. REQUESTED MORE ICE WATER.
[2016-12-03 04:00] VITALS: BP 147/86
[2016-12-03 05:47] LABS: BASOPHILS 0.1 % (0-2); EOSINOPHILS 1.4 % (0-7); HEMOGLOBIN 9.3 g/dL (13.5-17.5); IMMATURE GRANULOCYTES 0.4 % (0-5); LYMPHOCYTES 7.9 % (15-50); MCH 28.5 pg (26.0-34.0); MCHC 32.1 g/dL (31.0-37.0); MEAN PLATELET VOLUME 9.3 fL (7.4-10.4); MONOCYTES 14.2 % (2-11); PLATELET COUNT 354 10x3/uL (130-400); RBC 3.26 10x6/uL (4.20-6.10); WBC 13.5 10x3/uL (4.8-10.8)
[2016-12-03 06:03] LABS: ANION GAP 14.3 mmol/L (8-16); CALCIUM 8.9 mg/dL (8.5-10.1); CARBON DIOXIDE 27.4 mmol/L (21.0-32.0); CREATININE - SERUM 5.2 mg/dL (0.6-1.3); PHOSPHOROUS 3.3 mg/dL (2.5-4.9); POTASSIUM - SERUM 3.7 mmol/L (3.5-5.1); VANCOMYCIN - RANDOM 24.5 ug/mL (10.0-20.0)
--- NOTE | 2016-12-03 07:45 | NUR ---
REPORT RECIEVED. INTRODUCED SELF AND PLACED NAME ON WHITE BOARD. RR EVEN AND UNLABORED, PT UP TO CHAIR. PT DENIES NEEDS AT THIS TIME. WILL CTM.
[2016-12-03 09:34] VITALS: BP 142/89
--- NOTE | 2016-12-03 09:57 | NUR ---
MAXIPIME NOT IN PYXIS OR IN [place]. CONTACTED PHARMACY ABOUT MEDICATION. REPORTED THAT THEY WILL SEND IT TO THE FLOOR.
--- NOTE | 2016-12-03 11:13 | OP ---
PATIENT NAME: LIDA RICKS MEDICAL RECORD: [id number] :[birth year] LOCATION:[facility] D.2135 ADMISSION DATE:11/18/16 SURGEON: CLAUDIA STREETER MD DATE OF OPERATION: 11/28/2016 SURGEON: Claudia Streeter MD ANESTHESIA: General endotracheal anesthesia, Dr. Warner. OPERATION PERFORMED: Subxiphoid pericardiectomy. PREOPERATIVE DIAGNOSIS: Pericardial effusion. POSTOPERATIVE DIAGNOSIS: Chronic and acute pericarditis. FINDINGS AT OPERATION: Chronic pericarditis effusion 350 mL. Left pleural effusion approximately 100 cc of turbid fluid. ESTIMATED BLOOD LOSS: Less than 100 mL. DESCRIPTION OF PROCEDURE: After informed consent, adequate preoperative medication evaluation, the patient was brought to the operating room, placed on the table in the supine position. After induction of general endotracheal anesthesia and application of appropriate monitoring devices and the placement of a right subclavian line, the chest and abdomen were prepped and draped in a sterile field, utilizing Betadine scrub, alcohol, and Betadine solution. A Betadine-impregnated drape was also used. An upper abdominal midline incision was made and dissection carried down the fascia. Hemostasis maintained with electrocautery. The fascia was divided. The preperitoneal space was divided and the diaphragmatic attachments to the xiphoid were divided with electrocautery. The pleura was then elevated from the pericardium. The pericardium was grasped with Allis clamp at the diaphragm and the pericardium opened. Cultures were taken for aerobe, anaerobe, TB, fungus and cytology. The remainder of the fluid was removed and the adhesions were lysed. A large segment of the anterior pericardium was removed and sent to pathology for histology and tissue cultures, aerobic, anaerobic, TB and fungus. The pleural spaces were opened on both sides. The pericardium was examined for bleeding. There was none. The pericardial incision was then carried more cephalad. Fluid was removed from the left hemithorax, which was yellow and turbid. The pericardial fluid was serosanguineous. There was chronic pericarditis on the epicardium of the heart as well as the pericardium. The adhesions were lysed in the pericardium. The chest was again irrigated. Instrument count and sponge count were correct. A #40 chest tube was brought in through the subcostal area and placed in the pericardium. The pericardium was irrigated with copious amounts of antibiotic solution and normal saline. There was no active bleeding. Instrument count and sponge counts were correct times 2. The abdomen was closed in layers utilizing 0 Ethibond sutures on the linea alba. The subcutaneous tissue was approximated with 2-0 Vicryl and skin approximated with 3-0 subcuticular Vicryl. Sterile dressings were applied. The patient tolerated the procedure well and was transferred to the ICU in stable condition. TRANSINT:[id number] Voice Confirmation ID: [id number] DOCUMENT ID: [id number] OPERATIVE REPORT [id number] LIDA RICKS EDWARD MD at 1113 CC: [id number] DICTATION DATE: 11/28/16 1438 SHOWROOM SALES ASSISTANT: 11/28/16 2347 ADM IN [place] [id number] [place] [address]
[2016-12-03 12:38] VITALS: BP 145/90
--- NOTE | 2016-12-03 13:33 | NUR ---
DRESSING CHANGE COMPLETED, STERILE FIELD MANINTED. CLEANED SITE WITH BETADINE AND APPLIED BETADINE OINTMENT PER ORDERS. SECURED WITH HYPAFIX TAPE. SITE SHOWS NO S/S OF INFECTION.
[2016-12-03 16:48] VITALS: BP 146/88
--- NOTE | 2016-12-03 18:06 | NUR ---
PT RECEIVING DIALYSIS IN ROOM. DIALYSIS NURSE PRESENT IN ROOM. RR EVEN AND UNLABORED, ALERT AND ORIENTED. WILL GIVE REPORT ON PT CONDITION FOR THE DAY.
--- NOTE | 2016-12-03 19:39 | NUR ---
PT RESTING IN BED ON PHONE. DIALYSIS NURSE AT BEDSIDE. PT DENIES ANY NEEDS AT THIS TIME. NO S/S OF DISTRESS. STATES WILL CALL IF HAS ANY NEEDS. BED LOW CALL LIGHT WITHIN REACH. WILL CPOC
[2016-12-04] VITALS: BP 163/98
[2016-12-04 04:00] VITALS: BP 134/82
[2016-12-04 05:36] LABS: BASOPHILS 0.1 % (0-2); EOSINOPHILS 1.7 % (0-7); HEMATOCRIT 28.5 % (42.0-54.0); HEMOGLOBIN 9.2 g/dL (13.5-17.5); IMMATURE GRANULOCYTES 0.4 % (0-5); LYMPHOCYTES 7.2 % (15-50); MCH 28.7 pg (26.0-34.0); MCHC 32.3 g/dL (31.0-37.0); MCV 88.8 fL (80.0-100.0); MEAN PLATELET VOLUME 9.6 fL (7.4-10.4); MONOCYTES 14.2 % (2-11); NEUTROPHILS 76.4 % (40-80); PLATELET COUNT 341 10x3/uL (130-400); RBC 3.21 10x6/uL (4.20-6.10); RDW 13.8 % (11.5-14.5); WBC 13.6 10x3/uL (4.8-10.8)
[2016-12-04 05:51] LABS: ANION GAP 11.3 mmol/L (8-16); CALCIUM 8.7 mg/dL (8.5-10.1); CARBON DIOXIDE 31.5 mmol/L (21.0-32.0); CREATININE - SERUM 4.1 mg/dL (0.6-1.3); POTASSIUM - SERUM 3.8 mmol/L (3.5-5.1); VANCOMYCIN - RANDOM 11.7 ug/mL (10.0-20.0)
--- NOTE | 2016-12-04 06:38 | NUR ---
PT RESTING IN BED. DENIES ANY NEEDS AT THIS TIME. NO S/S OF DISTRESS. BED LOW AND CALL LIGHT WITHIN REACH. PT WILL CALL IF HE HAS ANY NEEDS, WILL CPOC
--- NOTE | 2016-12-04 07:35 | NUR ---
REPORT RECIEVED. PT ASLEEP, RR EVEN AND UNLABORED. PLACED NAME ON WHITE BOARD, NO SIGNS OF DISTRESS. WILL CTM.
[2016-12-04 08:00] VITALS: BP 157/99
[2016-12-04 12:00] VITALS: BP 128/86
[2016-12-04 16:00] VITALS: BP 136/88
--- NOTE | 2016-12-04 18:00 | NUR ---
PT RESTING QUIETLY, DENIES NEEDS AT THIS TIME. RR EVEN AND UNLABORED. WILL GIVE REPORT ON PT CONDITION FOR THE DAY.
--- NOTE | 2016-12-04 19:29 | NUR ---
PT RESTING IN BED WATCHING TV. PT DONE WITH DINNER TRAY 90% 240ML. PT DENIES ANY NEEDS. NO S/S OF DISTRESS. BED LOW CALL LIGHT WITHIN REACH. WILL CPOC
[2016-12-04 20:00] VITALS: BP 159/100
--- NOTE | 2016-12-04 21:38 | NUR ---
PT RESTING. DENIES ANY NEEDS. 2100 MEDS GIVEN. NO S/S OF DISTRESS. WILL CONTINUE TO MONITOR
[2016-12-05] VITALS: BP 142/90
--- NOTE | 2016-12-05 05:04 | NUR ---
PT RESTING IN BED. DENIES ANY NEEDS AT THIS TIME. NO S/S OF DISTRESS. BED LOW AND CALL LIGHT WITHIN REACH. WILL CPOC
[2016-12-05 05:48] LABS: BASOPHILS 0.1 % (0-2); EOSINOPHILS 1.4 % (0-7); HEMATOCRIT 29.1 % (42.0-54.0); HEMOGLOBIN 9.3 g/dL (13.5-17.5); IMMATURE GRANULOCYTES 0.5 % (0-5); MCH 28.4 pg (26.0-34.0); MEAN PLATELET VOLUME 9.2 fL (7.4-10.4); MONOCYTES 10.7 % (2-11); NEUTROPHILS 80.3 % (40-80); PLATELET COUNT 369 10x3/uL (130-400); RBC 3.27 10x6/uL (4.20-6.10); RDW 13.9 % (11.5-14.5); WBC 15.5 10x3/uL (4.8-10.8)
[2016-12-05 06:14] LABS: ANION GAP 13.8 mmol/L (8-16); CALCIUM 8.8 mg/dL (8.5-10.1); CARBON DIOXIDE 28.1 mmol/L (21.0-32.0); CREATININE - SERUM 4.9 mg/dL (0.6-1.3); POTASSIUM - SERUM 3.9 mmol/L (3.5-5.1); VANCOMYCIN - RANDOM 17.9 ug/mL (10.0-20.0)
[2016-12-05 08:00] VITALS: BP 143/95
[2016-12-05 11:12] LABS: FUNGUS MYCOLOGY CULTURE Preliminary report (())
[2016-12-05 11:12] LABS: FUNGUS MYCOLOGY CULTURE Preliminary report (())
[2016-12-05 11:12] LABS: FUNGUS MYCOLOGY CULTURE Preliminary report (())
--- NOTE | 2016-12-05 11:24 | NUR ---
ORDER REC'D TO D/C CVL. PT REQUEST I WAIT UNTIL AFTER LUNCH AFTER I EXPLAINED PROCESS. NO IMMEDIATE NEED TO DO NOW SO I WILL DO AFTER LUNCH REQUESTED. PT RESTING WATCHING TV AND DENIES ANY CURRENT PAIN OR NEEDS. CL IN REACH, BED IN LOWEST, SIDE RAILS X2. WILL CPOC.
[2016-12-05 12:00] VITALS: BP 147/98
[2016-12-05 16:00] VITALS: BP 153/93
--- NOTE | 2016-12-05 17:12 | NUR ---
Patient Name: LIDA RICKS Encounter No: [id number] : 1980 Primary Insurance: MEDICARE A & B Anticipated DC Date: Planned Disposition: Home DCP follow-up note: CM RECEIVED DISCHARGE PLANNING ORDER AND ORDER FOR VANCOMYCIN ON MONDAY AND FRIDAYS FOR THREE WEEKS. CM CALLED RENAL NURSE JOYCE FOR CLARIFICATION FOR CM TO ARRANGE HOME HEALTH. JOYCE CALLED CM BACK A SHORT TIME LATER AND REPORTED SPEAKING TO DR. CASTRO AND PT WILL RECEIVE VANCOMYCIN IN DIALYSIS AT HIS HOME UNIT, THERE IS NO HOME HEALTH NEED AT THIS TIME. CM MET WITH PT IN ROOM, DISCUSSED DISCHARGE PLAN FOR TOMORROW, PT DENIES NEED OF REHAB SERVICES, HOME HEALTH OR MEDICAL EQUIPMENT; PT REPORTS HIS MOM WILL PICK HIM UP FOR DISCHARGE HOME. IMPORTANT MESSAGE FROM MEDICARE PROVIDED AND EXPLAINED. Andreas Dong, CASE MANAGEMENT
[2016-12-05 20:00] VITALS: BP 131/86
--- NOTE | 2016-12-05 20:00 | NUR ---
PT SITTING IN BED. DONE WITH DINNER TRAY. 90% 320CC. PT SEEMS HAPPY ABOUT D/C FOR 12/06/16. PT DENIES ANY PAIN OR ANY NEEDS AT THIS TIME. BED LOW AND CALL LIGHT WITHIN REACH. NO S/S OF DISTRESS. WILL CPOC
[2016-12-06] VITALS: BP 163/71
[2016-12-06 04:00] VITALS: BP 154/961
[2016-12-06 05:39] LABS: BASOPHILS 0.1 % (0-2); EOSINOPHILS 1.6 % (0-7); HEMATOCRIT 30.9 % (42.0-54.0); HEMOGLOBIN 9.8 g/dL (13.5-17.5); IMMATURE GRANULOCYTES 0.6 % (0-5); LYMPHOCYTES 10.5 % (15-50); MCH 28.3 pg (26.0-34.0); MCHC 31.7 g/dL (31.0-37.0); MCV 89.3 fL (80.0-100.0); MONOCYTES 10.9 % (2-11); NEUTROPHILS 76.3 % (40-80); PLATELET COUNT 369 10x3/uL (130-400); RBC 3.46 10x6/uL (4.20-6.10); RDW 14.1 % (11.5-14.5); WBC 13.7 10x3/uL (4.8-10.8)
[2016-12-06 06:06] LABS: ANION GAP 12.9 mmol/L (8-16); CARBON DIOXIDE 27.9 mmol/L (21.0-32.0); CREATININE - SERUM 5.3 mg/dL (0.6-1.3); POTASSIUM - SERUM 3.8 mmol/L (3.5-5.1); VANCOMYCIN - RANDOM 12.7 ug/mL (10.0-20.0)
--- NOTE | 2016-12-06 06:45 | NUR ---
PT RESTING IN BED. DENIES ANY NEEDS. ASKS WHEN DIALYSIS WILL BE. I TOLD HIM WE WILL LET HIM KNOW SOON WE KNOW A TIME. PT DENIES ANY PAIN. NO S/S OF DISTRESS. WILL CPOC
--- NOTE | 2016-12-06 07:05 | NUR ---
RECEIVED REPORT. ASSUMED CARE OF PATIENT. PATIENT LYING IN BED WITH EYES OPEN. DENIES NEEDS AT THIS TIME. BRUIT/THRILL TO LEFT UPPER ARM FISTULA. CALL LIGHT WITHIN REACH. NO DISTRESS.
[2016-12-06 08:00] VITALS: BP 150/88
--- NOTE | 2016-12-06 10:30 | NUR ---
DIALYSIS HERE FOR TREATMENT. NO DISTRESS. CALL LIGHT WITHIN REACH.
[2016-12-06] MEDS ORDERED: NEPHRO-VITE RX1 TAB PO (11:01)
[2016-12-06] MEDS ORDERED: RENVELA0.8 GM PO (11:01)
[2016-12-06 12:00] VITALS: BP 158/93
--- NOTE | 2016-12-06 13:04 | NUR ---
RESTING IN BED. TOLERATING DIALYSIS WELL. DENIES NEEDS. NO DISTRESS.
--- NOTE | 2016-12-06 14:05 | NUR ---
1400 DISCHARGE INSTRUCTIONS PROVIDED TO PATIENT AND HIS MOTHER. PATIENT NOR HIS MOTHER HAD ANY QUESTIONS FOR THIS SOCIAL WORK THERAPIST AND VERBALIZED UNDERSTANDING OF ALL DISCHARGE INSTRUCTIONS PROVIDED. PATIENT COMPLETED DAILYSIS @ 1345. 2.5 LITERS REMOVED. NO BLEEDING FROM FISTULA. NO DISTRESS. 1405 PATIENT LEFT UNIT WITH ALL PERSONAL BELONGINGS VIA WHEELCHAIR. PATIENT DISCHARGED TO HOME VIA PRIVATE CAR WITH HIS MOTHER. NO DISTRESS UPON LEAVING UNIT. PATIENT HAD NO IV ACCESS TO REMOVE. TELEMETRY REMOVED.
== END 2016-12-06 14:05 | disposition home or self-care (01) | DRG 853 ==
LOC: D.ICU 00:38 → D.M2 00:38 → D.ICU 11-28 13:02 → D.M2 12-02 18:04
PROVIDERS: Emergency Medicine; Internal Medicine; Internal Medicine Cardiovascular Disease; Internal Medicine Nephrology; Internal Medicine Pulmonary Disease; ADMIT Internal Medicine Nephrology
PROC: 02TN0ZZ Resection of Pericardium, Open Approach (ICD-10-PCS; principal; 2016-11-28 11:00)
DX: A41.9 Sepsis, unspecified organism (principal); J18.9 Pneumonia, unspecified organism; J95.821 Acute postprocedural respiratory failure; I01.1 Acute rheumatic endocarditis; I12.0 Hypertensive chronic kidney disease with stage 5 chronic kidney disease or end stage renal disease; N18.5 Chronic kidney disease, stage 5; I30.9 Acute pericarditis, unspecified; J98.11 Atelectasis; J20.9 Acute bronchitis, unspecified; J30.9 Allergic rhinitis, unspecified; D64.9 Anemia, unspecified; Z99.2 Dependence on renal dialysis

== ENCOUNTER 2017-12-15 08:57 | Inpatient (IN) | payer MEDICARE ==
[~2017-12-15] VITALS: Ht 172.7 cm; Wt 93.0 kg
[~2017-12-15 08:57] MED LIST changes: +NEPHRO-VITE RX1 TAB PO; +NIFEDIPINE ER30 MG PO; +RENVELA0.8 GM PO
[2017-12-15 10:34] LABS: BASOPHILS 0.1 % (0-2); HEMATOCRIT 36.7 % (42.0-54.0); HEMOGLOBIN 11.5 g/dL (13.5-17.5); IMMATURE GRANULOCYTES 0.1 % (0-5); MCH 28.1 pg (26.0-34.0); MCHC 31.3 g/dL (31.0-37.0); MCV 89.7 fL (80.0-100.0); NEUTROPHILS 68.8 % (40-80); PLATELET COUNT 346 10x3/uL (130-400); RBC 4.09 10x6/uL (4.20-6.10); RDW 16.2 % (11.5-14.5); WBC 8.3 10x3/uL (4.8-10.8)
[2017-12-15 10:41] LABS: ANION GAP 8.8 mmol/L (8-16); C-REACTIVE PROTEIN 9.6 mg/dL (0.0-0.9); CALCIUM 9.7 mg/dL (8.5-10.1); CARBON DIOXIDE 28.7 mmol/L (21.0-32.0); CREATININE - SERUM 5.8 mg/dL (0.6-1.3); POTASSIUM - SERUM 3.5 mmol/L (3.5-5.1)
[2017-12-15 11:03] LABS: APTT 34.3 SECONDS (22.8-39.4); INR 1.11 (0.85-1.17); PROTIME 13.9 SECONDS (11.6-15.0)
[2017-12-15 11:11] VITALS: BMI 32.4
[2017-12-15 11:51] LABS: ERYTHROCYTE SEDIMENTATION RATE 101 mm/hr (0-15)
[2017-12-15] MEDS ORDERED: HYDROCODONE-APA1 TAB PO (16:40)
[2017-12-15 16:46] VITALS: BP 198/114; BMI 32.4
[2017-12-15 20:22] VITALS: BP 181/111
[2017-12-16] VITALS: BP 179/108
[2017-12-16 06:35] VITALS: BP 173/107
[2017-12-16 06:49] LABS: BASOPHILS 0.4 % (0-2); EOSINOPHILS 2.4 % (0-7); HEMATOCRIT 33.9 % (42.0-54.0); HEMOGLOBIN 10.7 g/dL (13.5-17.5); IMMATURE GRANULOCYTES 0.1 % (0-5); LYMPHOCYTES 16.2 % (15-50); MCH 28.1 pg (26.0-34.0); MCHC 31.6 g/dL (31.0-37.0); MEAN PLATELET VOLUME 10.1 fL (7.4-10.4); MONOCYTES 12.7 % (2-11); NEUTROPHILS 68.2 % (40-80); PLATELET COUNT 320 10x3/uL (130-400); RBC 3.81 10x6/uL (4.20-6.10); RDW 16.3 % (11.5-14.5); WBC 8.9 10x3/uL (4.8-10.8)
[2017-12-16 07:05] LABS: ANION GAP 12.7 mmol/L (8-16); CALCIUM 9.2 mg/dL (8.5-10.1); CARBON DIOXIDE 26.1 mmol/L (21.0-32.0); CREATININE - SERUM 6.3 mg/dL (0.6-1.3); PHOSPHOROUS 4.1 mg/dL (2.5-4.9); POTASSIUM - SERUM 3.8 mmol/L (3.5-5.1)
[2017-12-16 07:08] LABS: INR 1.2 (0.85-1.17); PROTIME 14.7 SECONDS (11.6-15.0)
[2017-12-16 07:53] VITALS: BP 184/118
[2017-12-16 09:51] VITALS: Ht 172.7 cm; Wt 93.0 kg
[2017-12-16 15:20] VITALS: BP 196/126
[2017-12-16 17:25] VITALS: BP 179/104
[2017-12-16 19:00] VITALS: BP 194/107
[2017-12-17 00:29] VITALS: BP 189/114
[2017-12-17 05:06] VITALS: BP 196/118
[2017-12-17 05:13] LABS: BASOPHILS 0.4 % (0-2); EOSINOPHILS 2.7 % (0-7); HEMATOCRIT 34.9 % (42.0-54.0); HEMOGLOBIN 11.1 g/dL (13.5-17.5); IMMATURE GRANULOCYTES 0.3 % (0-5); LYMPHOCYTES 16.3 % (15-50); MCH 28.2 pg (26.0-34.0); MCHC 31.8 g/dL (31.0-37.0); MCV 88.6 fL (80.0-100.0); MEAN PLATELET VOLUME 9.9 fL (7.4-10.4); MONOCYTES 12.5 % (2-11); NEUTROPHILS 67.8 % (40-80); PLATELET COUNT 329 10x3/uL (130-400); RBC 3.94 10x6/uL (4.20-6.10); RDW 16.3 % (11.5-14.5); WBC 9.8 10x3/uL (4.8-10.8)
[2017-12-17 05:36] LABS: ANION GAP 13.7 mmol/L (8-16); CALCIUM 9.3 mg/dL (8.5-10.1); CARBON DIOXIDE 28.1 mmol/L (21.0-32.0); CREATININE - SERUM 5.7 mg/dL (0.6-1.3); PHOSPHOROUS 4.4 mg/dL (2.5-4.9); POTASSIUM - SERUM 3.8 mmol/L (3.5-5.1)
[2017-12-17 08:43] VITALS: BP 194/117
[2017-12-17 13:35] VITALS: BP 175/109
[2017-12-17 15:09] LABS: ACID FAST SMEAR Negative (()); AFB SPECIMEN PROCESSING Concentration (())
[2017-12-17 16:17] VITALS: BP 182/106
[2017-12-17 21:24] VITALS: BP 164/98
[2017-12-18 00:57] VITALS: BP 159/90
[2017-12-18 05:34] LABS: BASOPHILS 0.5 % (0-2); EOSINOPHILS 3.7 % (0-7); HEMATOCRIT 34.6 % (42.0-54.0); IMMATURE GRANULOCYTES 0.1 % (0-5); LYMPHOCYTES 16.7 % (15-50); MCH 28.1 pg (26.0-34.0); MCHC 31.8 g/dL (31.0-37.0); MCV 88.3 fL (80.0-100.0); MEAN PLATELET VOLUME 10.1 fL (7.4-10.4); MONOCYTES 10.5 % (2-11); NEUTROPHILS 68.5 % (40-80); PLATELET COUNT 360 10x3/uL (130-400); RBC 3.92 10x6/uL (4.20-6.10); RDW 16.4 % (11.5-14.5); WBC 8.6 10x3/uL (4.8-10.8)
[2017-12-18 05:50] LABS: ANION GAP 16.8 mmol/L (8-16); CALCIUM 9.5 mg/dL (8.5-10.1); CARBON DIOXIDE 24.2 mmol/L (21.0-32.0); CREATININE - SERUM 6.9 mg/dL (0.6-1.3); PHOSPHOROUS 4.9 mg/dL (2.5-4.9); VANCOMYCIN - RANDOM 23.3 ug/mL (10.0-20.0)
[2017-12-18 05:52] VITALS: BP 172/104
[2017-12-18 07:59] VITALS: BP 150/82
[2017-12-18 11:59] VITALS: BP 146/51
[2017-12-18 15:59] VITALS: BP 158/101
[2017-12-18 20:00] VITALS: BP 178/103
[2017-12-19 04:17] VITALS: BP 164/103
[2017-12-19 05:55] LABS: BASOPHILS 0.5 % (0-2); EOSINOPHILS 4.4 % (0-7); HEMATOCRIT 34.8 % (42.0-54.0); HEMOGLOBIN 10.9 g/dL (13.5-17.5); IMMATURE GRANULOCYTES 0.2 % (0-5); LYMPHOCYTES 22.2 % (15-50); MCH 27.8 pg (26.0-34.0); MCHC 31.3 g/dL (31.0-37.0); MCV 88.8 fL (80.0-100.0); MEAN PLATELET VOLUME 10.1 fL (7.4-10.4); MONOCYTES 11.7 % (2-11); PLATELET COUNT 324 10x3/uL (130-400); RBC 3.92 10x6/uL (4.20-6.10); RDW 16.3 % (11.5-14.5); WBC 8.4 10x3/uL (4.8-10.8)
[2017-12-19 06:31] LABS: CALCIUM 8.8 mg/dL (8.5-10.1); CARBON DIOXIDE 29.8 mmol/L (21.0-32.0); CREATININE - SERUM 6.4 mg/dL (0.6-1.3); PHOSPHOROUS 5.4 mg/dL (2.5-4.9); POTASSIUM - SERUM 3.8 mmol/L (3.5-5.1); VANCOMYCIN - RANDOM 14.1 ug/mL (10.0-20.0)
[2017-12-19 07:32] LABS: HEPATITIS C ANTIBODY 0.1 (0.0-0.9)
[2017-12-20 13:19] LABS: FUNGUS STAIN Final report (())
[2018-01-15 07:10] LABS: FUNGUS MYCOLOGY CULTURE Final report (())
== END 2017-12-19 11:29 | disposition home or self-care (01) | DRG 539 ==
LOC: OBSVTIME → D.SDCHOLD 08:57 → D.OPS 08:57 → D.M2 08:57 → UNDOADMOB 08:57 → OBSVTIME 08:58 → D.M2 12:43 → D.SDCHOLD 14:51 → EDSTATUS 15:00 → D.M2 12-16 16:52
PROVIDERS: General Practice; Internal Medicine Nephrology
PROC: 0S9 Lower Joints, Drainage (ICD-10-PCS; principal; 2017-12-15 15:00)
DX: M46.26 Osteomyelitis of vertebra, lumbar region (principal); N18.6 End stage renal disease; I12.0 Hypertensive chronic kidney disease with stage 5 chronic kidney disease or end stage renal disease; B95.7 Other staphylococcus as the cause of diseases classified elsewhere